=== PATIENT | female | born 1940 | race Caucasian/White ===

== ENCOUNTER → 2017-07-22 11:12 | Outpatient (POV) | payer MEDICARE, OTHER, SELFPAY | PROVIDERS: PCP Internal Medicine; Visit Provider Nurse Practitioner Acute Care | DX: Z00.00 Encounter for general adult medical examination without abnormal findings (principal) ==

== ENCOUNTER → 2017-08-01 07:45 | Outpatient (CLI) | payer MEDICARE, OTHER, SELFPAY ==
--- NOTE | 2017-08-01 07:47 | CI_ITS ---
Cerebrovascular Exam Indications: 433.10 Occlusion/stenosis of carotid artery without cerebral infarction. IMPRESSIONS 1. The bilateral vertebral arteries are patent with normal antegrade flow. 2. Study suggests 50-69% stenosis involving the right internal carotid artery. 3. Study suggests 50-69% stenosis involving the left internal carotid artery. Disease progression from the study of 28-Jun-2010. History: Risk factors: Current tobacco use. Hypertension. Carotid duplex study. Complete study and Doppler flow study including spectral analysis, color and mclaughlin scale imaging. Location: Vascular laboratory. Patient status: Outpatient. Tables: Arterial flow: + +--------+--------+ Location V sys V ed + +--------+--------+ Right CCA - proximal 73.9cm/s 16.5cm/s + +--------+--------+ Right CCA - distal 58.9cm/s 14.1cm/s + +--------+--------+ Right ECA 167cm/s -------- + +--------+--------+ Right ICA - proximal 171cm/s 41cm/s + +--------+--------+ Right ICA - mid 168cm/s 33.2cm/s + +--------+--------+ Right ICA - distal 116cm/s 21.8cm/s + +--------+--------+ Right vertebral 69cm/s -------- + +--------+--------+ Left CCA - proximal 86.4cm/s 15.7cm/s + +--------+--------+ Left CCA - distal 82.1cm/s 17.5cm/s + +--------+--------+ Left ECA 108cm/s -------- + +--------+--------+ Left ICA - proximal 203cm/s 47.1cm/s + +--------+--------+ Left ICA - mid 108cm/s 22.4cm/s + +--------+--------+ Left ICA - distal 72.3cm/s 20.4cm/s + +--------+--------+ Left vertebral 56cm/s -------- + +--------+--------+ Velocity ratios: + + + + + + Right, V sys Right, V ed Left, V sys Left, V ed + + + + + + Max ICA/dist CCA 2.9 2.91 2.47 2.69 + + + + + + (Report amended ) Electronically signed by: Jr España [id number]
== END ==
PROVIDERS: PCP Internal Medicine; Visit Provider Internal Medicine
DX: R09.89 Other specified symptoms and signs involving the circulatory and respiratory systems (principal); R42 Dizziness and giddiness; I25.10 Atherosclerotic heart disease of native coronary artery without angina pectoris; E78.5 Hyperlipidemia, unspecified; I10 Essential (primary) hypertension
CPT/HCPCS: 93880

== ENCOUNTER → 2017-12-30 08:15 | Outpatient (POV) | payer MEDICARE, OTHER, SELFPAY | PROVIDERS: Visit Provider Nurse Practitioner Acute Care | DX: Z00.00 Encounter for general adult medical examination without abnormal findings (principal) ==

== ENCOUNTER → 2018-07-16 10:33 | Outpatient (CLI) | payer MEDICARE, OTHER, SELFPAY ==
[2018-07-18 07:02] LABS: C difficile Toxins AB, EIA Negative (Negative)
[2018-07-23 06:15] LABS: Fats, Neutral Normal (.); Fats, Total Normal (.)
== END ==
PROVIDERS: Visit Provider Internal Medicine
DX: R19.7 Diarrhea, unspecified (principal)
CPT/HCPCS: 82705; 87045; 87177; 87205; 87324

== ENCOUNTER → 2018-10-15 09:45 | Outpatient (CLI) | payer MEDICARE, OTHER, SELFPAY ==
--- NOTE | 2018-10-15 09:48 | CA_ITS ---
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 Indications: CS FOLLOW-UP Risk Factors Hypertension: Doppler Spectral Velocity Analysis ECA (R) 188.00/ cm/s ECA (L) 169.00/ cm/s dICA (R) 123.00/38.60 cm/s dICA (L) 96.90/30.60 cm/s Gisela (R) 143.00/28.50 cm/s Gisela (L) 120.00/38.40 cm/s pICA (R) 217.00/46.00 cm/s pICA (L) 196.00/35.90 cm/s dCCA (R) 106.00/22.00 cm/s dCCA (L) 80.90/14.90 cm/s pCCA (R) 109.00/17.30 cm/s pCCA (L) 155.00/21.30 cm/s Vert (R) 65.20/ cm/s Vert (L) 41.60/ cm/s ICA/CCA 2.05 ICA/CCA 2.42 Findings Duplex evaluation demonstrates stenosis of the right Internal Carotid Artery and left Internal Carotid Artery in the range of 50-69%. Duplex evaluation demonstrates antegrade flow of the bilateral Vertebral Arteries. Electronically signed by : Jr España MD 10/16/2018 08:00:22
== END ==
PROVIDERS: PCP Internal Medicine; Visit Provider Internal Medicine
DX: I25.10 Atherosclerotic heart disease of native coronary artery without angina pectoris (principal); I65.23 Occlusion and stenosis of bilateral carotid arteries
CPT/HCPCS: 93880

== ENCOUNTER → 2018-12-24 12:14 | Outpatient (CLI) | payer MEDICARE, OTHER, SELFPAY ==
[2018-12-24 12:21] LABS: Adenovirus F 40/41, stool Not Detected (NotDetected); Astrovirus Not Detected (NotDetected); Campylobacter Not Detected (NotDetected); Cryptosporidium Not Detected (NotDetected); Cyclospora Cayetanesis Not Detected (NotDetected); Entamoeba histolytica Not Detected (NotDetected); Enteroaggregative E coli Not Detected (NotDetected); Enteropathogenic E coli Not Detected (NotDetected); Enterotoxigenic E coli Not Detected (NotDetected); Giardia lamblia Not Detected (NotDetected); Norovirus Not Detected (NotDetected); Plesimonas Shigalloides, PCR Not Detected (NotDetected); Rotavirus A Not Detected (NotDetected); Salmonella, PCR Not Detected (NotDetected); Sapovirus Not Detected (NotDetected); Shiga-like toxin E coli Not Detected (NotDetected); Shigella Enterovasive E coli Not Detected (NotDetected); Vibrio Cholerae Not Detected (NotDetected); Vibrio, PCR Not Detected (NotDetected); Yersinia Entercolitica, PCR Not Detected (NotDetected)
[2018-12-24 14:31] LABS: Clostridium Difficile A/B, PCR Detected (NotDetected)
== END ==
PROVIDERS: Visit Provider Internal Medicine
DX: R19.7 Diarrhea, unspecified (principal); A04.72 Enterocolitis due to Clostridium difficile, not specified as recurrent
CPT/HCPCS: 87506

== ENCOUNTER → 2018-12-29 08:33 | Outpatient (POV) | payer MEDICARE, OTHER, SELFPAY | PROVIDERS: PCP Internal Medicine; Visit Provider Nurse Practitioner Family | DX: Z00.00 Encounter for general adult medical examination without abnormal findings (principal) ==

== ENCOUNTER 2019-08-16 13:53 | Emergency (ER) | payer MEDICARE, OTHER, SELFPAY ==
[2019-08-16 13:55] VITALS: BP 131/61; PULSE 69; RESP 18; TEMP 36.7; O2SAT 96; BMI 27.4
--- NOTE | 2019-08-16 14:06 | PC.NURSE ---
PT DOESNT WANT ANYTHING FOR ME AT THIS TIME , ICE APPLIED TO RIGHT FA
--- NOTE | 2019-08-16 14:13 | XR_ITS ---
PROCEDURE: XR ELBOW LT MIN 3V CLINICAL INDICATION: injury Posttraumatic pain COMPARISON: No exams were available for comparison FINDINGS: No fracture or dislocation. No lytic or blastic change. There is normal mineralization. The joint spaces are well-preserved. No significant degenerative/arthritic changes. No erosive changes evident. Other findings:None. IMPRESSION: No acute findings. Dictated by: Jr España MD 08/16/2019 18:47 Electronically signed by Jr España MD in [place] 08/16/2019 18:47
--- NOTE | 2019-08-16 14:13 | XR_ITS ---
PROCEDURE: XR FOREARM LT 2V CLINICAL INDICATION: injury Injury with pain and deformity COMPARISON: XR WRIST LT 2V from 08/16/2019 XR WRIST LT MIN 3V from 08/16/2019 FINDINGS: There is a comminuted fracture involving the distal radius at the epiphyseal remnant region. The fracture slightly impacted with comminuted margins with dorsal displacement of the distal fracture fragment by 10 mm and dorsal angulation along with mild ulnar displacement of the distal fracture fragment by 10 mm. There is an intra-articular component suspected which may be confirmed with CT. There is minimal widening of the scapholunate joint. There is a vague transverse lucency at the mid scaphoid region on one view possibly artifactual. Follow-up may confirm. Osteoarthritic changes are present at the scapho trapezium joint. The proximal mid aspect of the forearm have an unremarkable appearance. IMPRESSION: Comminuted impacted and displaced distal radial fracture as described above with suspected intra-articular extension which may be confirmed with CT. Dictated by: Jr España MD 08/16/2019 18:51 Electronically signed by Jr España MD in [place] 08/16/2019 18:51
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
--- NOTE | 2019-08-16 14:26 | PC.NURSE ---
Pt refused any pain medication for her arm, ice pack and pillow for elevation given
--- NOTE | 2019-08-16 15:02 | PC.NURSE ---
Pt stated to nurse that she was tired of waiting and that her arm pain was worse, offered pt pain medication and she continued to refuse. Education pt that rad had another pt that was getting images and will be down shortly.
--- NOTE | 2019-08-16 15:08 | PC.NURSE ---
Pt to radiology
--- NOTE | 2019-08-16 16:35 | XR_ITS ---
PROCEDURE: XR WRIST LT 2V CLINICAL INDICATION: post reduction COMPARISON: XR WRIST LT MIN 3V from 08/16/2019 FINDINGS: The study is obtained through a cast. Comminuted distal radial fracture once again noted with mild dorsal and ulnar displacement of the distal fracture fragment which may be slightly improved from the pre reduction image. IMPRESSION: Status post closed reduction with no significant change in the comminuted distal radial fracture Dictated by: Jr España MD 08/16/2019 18:43 Electronically signed by Jr España MD in [place] 08/16/2019 18:43
--- NOTE | 2019-08-16 16:54 | PC.NURSE ---
xray doing a post reduction film , ortho glass applied , and sling applied
[2019-08-16 17:10] VITALS: BP 123/87; PULSE 65; RESP 20; TEMP 36.8; O2SAT 98
== END 2019-08-16 17:11 | disposition home or self-care (01) ==
PROVIDERS: Emergency Provider Emergency Medicine; PCP Internal Medicine
DX: S52.552A Other extraarticular fracture of lower end of left radius, initial encounter for closed fracture (principal); V86.55XA Driver of 3- or 4- wheeled all-terrain vehicle (ATV) injured in nontraffic accident, initial encounter; Y92.018 Other place in single-family (private) house as the place of occurrence of the external cause; I10 Essential (primary) hypertension; K21.9 Gastro-esophageal reflux disease without esophagitis; E78.5 Hyperlipidemia, unspecified; I25.10 Atherosclerotic heart disease of native coronary artery without angina pectoris; Z79.899 Other long term (current) drug therapy
CPT/HCPCS: 25605; 29125; 73080; 73090; 73100; 73110; 99284

== ENCOUNTER → 2019-08-17 12:12 | Outpatient (CLI) | payer MEDICARE, OTHER, SELFPAY ==
[2019-08-17 12:56] LABS: Basophils % 0.1 % (0.1-2.0); Hematocrit 38.6 % (37.0-47.0); Hemoglobin 12.9 g/dL (12.2-16.2); Lymphocytes # 2.1 K/mm3 (0.7-4.5); Lymphocytes % 11.2 % (10-50); Mean Corpuscular HGB Conc 33.4 g/dL (31.8-35.4); Mean Corpuscular Hemoglobin 31.5 pg (27.0-31.2); Mean Corpuscular Volume 94.3 fl (81-99); Monocytes # 1.4 K/mm3 (0.1-1.0); Monocytes % 7.4 % (1.7-9.3); Neutrophils # 15.1 K/mm3 (1.8-7.8); Neutrophils % 81.2 % (37.0-80.0); Platelet Count 203 K/mm3 (142-424); Red Cell Distribution Width 12.3 % (11.5-17.5); White Blood Count 18.6 K/mm3 (4.8-10.8)
[2019-08-17 13:12] LABS: MANUAL DIFFERENTIAL MANUAL DIFFERENTIAL (MANUAL DIFF)
[2019-08-17 14:20] LABS: Alanine Aminotransferase 17 U/L (12-78); Albumin Level 4.5 g/dl (3.5-5.0); Albumin/Globulin Ratio 1.7 (1.1-1.8); Alkaline Phosphatase 69 U/L (38-126); Anion Gap 13.2 mEq/L (5-15); Aspartate Amino Transferase 29 U/L (14-36); Bilirubin,Total 0.7 mg/dl (0.2-1.3); Blood Urea Nitrogen 23 mg/dl (7-17); Calcium 10.8 mg/dl (8.4-10.2); Carbon Dioxide 28 mmol/L (22.0-30.0); Chloride 99 mmol/L (98-107); Estimated Glomerular Filt Rate 69 ml/min (>60); GFR (African American) 84 ML/MIN (>60); Globulin 2.6 g/dL (1.3-3.2); Glucose 119 mg/dl (74-100); Potassium 4.2 mmoL/L (3.5-5.1); Sodium 136 mmol/L (136-145); Total Protein,Serum 7.1 g/dl (6.3-8.2)
[2019-08-17 14:23] LABS: Coronavirus 19 IgG Antibody Negative (Negative); Coronavirus 19 IgM Antibody Negative (Negative)
--- NOTE | 2019-08-17 14:49 | ECG_ITS ---
APPROVED REPORT Exam: Resting ECG HR:73 bpm ECG Measurements Heart Rate 73 AXES LA 240 P 57 QRSd 160 QRS 153 QT 462 T 13 QTc 508 <Conclusion> Sinus rhythm with 1st degree AV block Right bundle branch block Left posterior fascicular block Bifascicular block Abnormal ECG Electronically signed by : Zoran Petty, 08/19/2019 17:09:58
[2019-08-17 15:19] LABS: Lymphocytes % 8 % (10-50); Monocytes % 8 % (2-9); Neutrophils % 84 % (42-76); Platelet Estimate Normal; RBC Morphology Normal; Total Cells Counted 100
[2019-08-17 15:59] LABS: INR 1.01 (0.9-1.1); Prothrombin Time 10.4 seconds (9.4-11.8)
[2019-08-17 16:46] LABS: Activated Partial Thrombo Time 23.8 seconds (23.6-34.0)
== END ==
LOC: LAB 12:13 → RT 12:43
PROVIDERS: PCP Internal Medicine; Visit Provider Orthopaedic Surgery
DX: S52.92XA Unspecified fracture of left forearm, initial encounter for closed fracture (principal); H61.20 Impacted cerumen, unspecified ear; Z01.818 Encounter for other preprocedural examination; I65.23 Occlusion and stenosis of bilateral carotid arteries
CPT/HCPCS: 36415; 80053; 85007; 85025; 85610; 85730; 86328; 93005

== ENCOUNTER 2019-08-18 06:14 | Day surgery (SDC) | payer MEDICARE, OTHER, SELFPAY ==
[2019-08-17 12:40] VITALS: BMI 27.4
[2019-08-18] VITALS (11 sets, daily range): BP systolic 117–148; BP diastolic 47–70; PULSE 56–72; RESP 16–21; TEMP 36.4–36.6; O2SAT 92–100
--- NOTE | 2019-08-18 07:12 | HMH.ANESCL ---
[facility] Anesthesia Checklist - Patient Identification Patient Identification: Arm Band, Verbal (Name & ) - Structural Data Admitted From: Home Planned Operative Procedure/s: orif left wrist Consent for Planned Operative Procedure(s) Verified: Yes Verified Documents: History and Physical - NPO Status Verified Time NPO: 00:00 - Chart Verification Results Verified: CBC, BMP - Additional verifications Patient : No Anesthesia Reactions: No Hx Blood Transfusions: No Blood Transfusion Reaction: No Cephalosporin Allergy: No Previous Colonoscopy: Yes - Cardiovascular Assessment Heart Sounds: S1 & S2 Pulse Strength: Baseline Pulse Rhythm: Regular Peripheral Edema: No - Airway Assessment C-Spine Mobility Assessed: Yes TMJ Mobility Assessed: Yes Dentition: Good Dentition - Neurological Assessment Level of Consciousness: Awake, Alert, Appropriate Hx Seizures: No Numbness or tingling in extremities: No - Anesthesia Plan Anesthesia Risk discussed: Yes Anesthesia Plan: Verified ASA Class: III Anesthesia Type: General [facility] History I have reviewed the patient's past medical history: Yes Medical History: Reports:: Coronary Artery Disease, Gastroesophageal Reflux Disease(GERD), Hiatal Hernia, Hyperlipidemia, Hypertension Denies:: Diabetes Mellitus Type 1, Diabetes Mellitus Type 2, Internal Pacemaker, Seizures *Have you ever received a pneumonia vaccine?: Yes *Have you received a flu vaccine this season?: Yes Other Medical History: Reports: Arthritis. Denies: Blood Transfusion Reaction Anesthesia experience/problems:: none Other Surgeries: Yes: Appendectomy, CABG, Cardiac Catheterization, Cholecystectomy, Coronary Stent, Other. No: Pacemaker Amputation: No Fractures: Yes (Left wrist) - *Social History Smoking Status: Never smoker Alcohol Intake: never Alcohol Intake Frequency:: other Substance Use Type: denies use *Occupational Status:: retired Housing: house Household Members: spouse *Travel in the last 8 weeks: None Family Hx:: Coronary Artery Disease, Heart Attack
[2019-08-18 09:56] LABS: Microscopic,Cath URINE MICROSCOPIC (MICROSCOPIC)
[2019-08-18 09:58] LABS: Bilirubin,Cath Negative (Negative); Blood, Urine/Cath TRACE-I (Negative); Color,Urine/Cath YELLOW (Yellow); Glucose,Urine/Cath (UA) Negative (Negative); Ketones,Urine/Cath Negative (Negative); Leukocyte Esterase,Cath Negative (Negative); Nitrate,Cath POSITIVE (Negative); Protein,Urine/Cath Negative (Negative); Urobilinogen,Cath 0.2 EU/dl (0.2)
[2019-08-18 10:03] LABS: Appearance,Urine/Cath Slightly Cloudy (Clear)
[2019-08-18 10:12] LABS: Bacteria,Urine/Cath 2+ /lpf; Squamous Epithelial Ur./Cath Occasional #/hpf (0-5)
--- NOTE | 2019-08-18 10:16 | XR_ITS ---
PROCEDURE: XR WRIST LT 2V CLINICAL INDICATION: PINNING OF LEFT WRIST IN OR COMPARISON: No exams were available for comparison FINDINGS: Fluoro time: 2 minutes and 35 seconds. There has been interval insertion of a volar bone plate with multiple screws with good alignment of the comminuted distal radial fracture. IMPRESSION: Good alignment status post distal radial fracture Dictated by: Jr España MD 08/18/2019 15:27 Electronically signed by Jr España MD in [place] 08/18/2019 15:27
--- NOTE | 2019-08-18 11:04 | P.PN_ITS ---
[facility] Anesthesia Record Part I Intake, IV Amount: 1,550 Estimated blood loss (mL): 10 Urine output (mL): 150 Blood Products used (#): none Blood Pressure: 122/58 SaO2: 100 Pulse Rate: 65 Respiratory Rate: 18 Temperature: 97.6 F Patient is:: Drowsy, Nasal O2, Stable Stable to PACU at:: 10:56
--- NOTE | 2019-08-18 11:14 | XR_ITS ---
PROCEDURE: XR WRIST LT MIN 3V CLINICAL INDICATION: s/p ORIF left distal radius fracture COMPARISON: XR WRIST LT 2V from 08/16/2019 XR WRIST LT MIN 3V from 08/16/2019 FINDINGS: Studies obtained through a cast. There is a volar bone plate at the distal radius with good alignment of the comminuted distal radial fracture IMPRESSION: Good alignment status post ORIF distal radius Dictated by: Jr España MD 08/18/2019 11:37 Electronically signed by Jr España MD in [place] 08/18/2019 11:37
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
--- NOTE | 2019-08-19 08:32 | HMH.ANESII ---
[facility] Anesthesia Record Part II Discharge Time: 12:15 Destination: Surgical Day Care (OP Surgery) PACU nurse assessment reviewed?: Yes Patient Condition:: Good Anesthesia Complications:: None Swallowing reflex intact?: Yes Cyanosis?: No Blood Pressure: 148/66 Pulse Rate: 60 Temperature: 97.7 F Mental Status: Alert & Oriented Pain level:: 0 Nausea and/or vomitting:: None Intake, IV Amount: 0
[2019-08-19 08:33] VITALS: BP 148/66; PULSE 60; TEMP 36.5
== END 2019-08-18 12:28 | disposition home or self-care (01) ==
LOC: OR 06:16
PROVIDERS: PCP Internal Medicine; Visit Provider Orthopaedic Surgery
PROC: (CPT 25608; principal; 2019-08-18 07:30)
DX: S52.572A Other intraarticular fracture of lower end of left radius, initial encounter for closed fracture (principal); V86.55XA Driver of 3- or 4- wheeled all-terrain vehicle (ATV) injured in nontraffic accident, initial encounter; Y92.73 Farm field as the place of occurrence of the external cause; I10 Essential (primary) hypertension; I25.10 Atherosclerotic heart disease of native coronary artery without angina pectoris; Z95.5 Presence of coronary angioplasty implant and graft; Z79.899 Other long term (current) drug therapy
CPT/HCPCS: 25608; 73100; 73110; 76000; 81001; 87086; 87088; 87186; 96374; C1713; C1776; J2405

== ENCOUNTER → 2019-08-27 10:28 | Outpatient (CLI) | payer MEDICARE, OTHER, SELFPAY ==
--- NOTE | 2019-08-27 10:33 | XR_ITS ---
PROCEDURE: XR WRIST LT MIN 3V CLINICAL INDICATION: s/p distal radius fx fu COMPARISON: XR FOREARM LT 2V from 08/16/2019 XR WRIST LT MIN 3V from 08/16/2019 XR WRIST LT 2V from 08/16/2019 XR WRIST LT MIN 3V from 08/18/2019 FINDINGS: The extremity is not casted. There is a plate and screws traversing a reduced, comminuted distal radial fracture. Narrowing of the radial carpal row and mild narrowing of the 1st metacarpocarpal spaces is again noted. Soft tissues are edematous. IMPRESSION: As above Dictated by: Kel Brooks 08/27/2019 10:48 Electronically signed by Kel Brooks in [place] 08/27/2019 10:48
== END ==
PROVIDERS: PCP Internal Medicine; Visit Provider Orthopaedic Surgery
DX: S52.502A Unspecified fracture of the lower end of left radius, initial encounter for closed fracture (principal)
CPT/HCPCS: 73110

== ENCOUNTER → 2019-09-17 09:40 | Outpatient (CLI) | payer MEDICARE, OTHER, SELFPAY ==
--- NOTE | 2019-09-17 09:46 | XR_ITS ---
PROCEDURE: XR WRIST LT MIN 3V CLINICAL INDICATION: Lt wrist fx fu Follow-up fracture COMPARISON: XR WRIST LT MIN 3V from 08/16/2019 XR WRIST LT 2V from 08/16/2019 XR WRIST LT MIN 3V from 08/18/2019 XR WRIST LT MIN 3V from 08/27/2019 FINDINGS: Good alignment status post ORIF distal radial fracture with anterior bone plate in place overall not significantly changed. IMPRESSION: Good alignment status post ORIF distal radial fracture Dictated by: Jr España MD 09/17/2019 10:31 Electronically signed by Jr España MD in [place] 09/17/2019 10:31
== END ==
PROVIDERS: PCP Internal Medicine; Visit Provider Orthopaedic Surgery
DX: S52.502A Unspecified fracture of the lower end of left radius, initial encounter for closed fracture (principal)
CPT/HCPCS: 73110

== ENCOUNTER 2019-09-17 10:53 | Outpatient (RCR) | payer MEDICARE, OTHER, SELFPAY | END 2019-09-17 11:20 | disposition home or self-care (01) | LOC: OT 10:53 | PROVIDERS: Visit Provider Orthopaedic Surgery | DX: S52.572D Other intraarticular fracture of lower end of left radius, subsequent encounter for closed fracture with routine healing (principal); M18.12 Unilateral primary osteoarthritis of first carpometacarpal joint, left hand | CPT/HCPCS: 97763 ==

== ENCOUNTER → 2019-10-12 08:48 | Outpatient (CLI) | payer MEDICARE, OTHER, SELFPAY ==
--- NOTE | 2019-10-12 08:56 | XR_ITS ---
PROCEDURE: XR WRIST LT MIN 3V CLINICAL INDICATION: LT wrist FX Follow-up fracture COMPARISON: No exams were available for comparison FINDINGS: Volar bone plate is present as before with good alignment of the distal radial fracture. There is mild prominence of the scapholunate joint space nonspecific but could be related to ligamentous Injury. There are degenerative changes at the 1st metacarpal-carpal joint and scapho trapezium joint Other findings:None. IMPRESSION: Good alignment status post ORIF distal radial fracture. Please see above for detail Dictated b Jr España MD 10/12/2019 10:59 Jr España MD in [place] 10/12/2019 10:59
== END ==
PROVIDERS: PCP Internal Medicine; Visit Provider Orthopaedic Surgery
DX: S52.502A Unspecified fracture of the lower end of left radius, initial encounter for closed fracture (principal)
CPT/HCPCS: 73110

== ENCOUNTER → 2019-11-20 12:22 | Outpatient (CLI) | payer MEDICARE, OTHER, SELFPAY ==
--- NOTE | 2019-11-20 12:28 | XR_ITS ---
PROCEDURE: XR WRIST LT MIN 3V CLINICAL INDICATION: Lt wrist Follow-up fracture COMPARISON: CR XR WRIST LT MIN 3V from 08/18/2019 CR XR WRIST LT MIN 3V from 08/27/2019 DX XR WRIST LT MIN 3V from 09/17/2019 CR XR WRIST LT MIN 3V from 10/12/2019 FINDINGS: Volar bone plate remains in place stabilizing the distal radial fracture with good alignment of the fracture fragments. Other findings:None. IMPRESSION: No change status post ORIF good alignment distal radial fracture Dictated by: Jr España MD 11/20/2019 15:35 Jr España MD in [place] 11/20/2019 15:35
== END ==
PROVIDERS: PCP Internal Medicine; Visit Provider Orthopaedic Surgery
DX: S52.502A Unspecified fracture of the lower end of left radius, initial encounter for closed fracture (principal)
CPT/HCPCS: 73110

== ENCOUNTER → 2019-12-28 08:22 | Outpatient (POV) | payer MEDICARE, OTHER, SELFPAY | PROVIDERS: Visit Provider Nurse Practitioner Family | DX: Z00.00 Encounter for general adult medical examination without abnormal findings (principal) ==

== ENCOUNTER → 2020-01-01 08:44 | Outpatient (CLI) | payer MEDICARE, OTHER, SELFPAY ==
--- NOTE | 2020-01-01 08:49 | XR_ITS ---
PROCEDURE: XR WRIST LT MIN 3V CLINICAL INDICATION: Lt wrist F/U COMPARISON: CR XR WRIST LT MIN 3V from 10/12/2019 CR XR WRIST LT MIN 3V from 11/20/2019 FINDINGS: The volar metallic plate is again noted stabilizing the distal radial fracture which appears to be essentially healed. There is mild narrowing of the radiocarpal joint. The distal ulna is intact. The carpal bones appear grossly normal except for arthritic changes of 1st carpometacarpal joint. IMPRESSION: Stable ORIF distal radial fracture Dictated by: Dr. Jeanmarie Loomis MD 01/01/2020 09:24 Dr. Jeanmarie Loomis MD in [place] 01/01/2020 09:24
== END ==
PROVIDERS: PCP Internal Medicine; Visit Provider Orthopaedic Surgery
DX: S52.502A Unspecified fracture of the lower end of left radius, initial encounter for closed fracture (principal)
CPT/HCPCS: 73110

== ENCOUNTER → 2020-09-10 13:05 | Outpatient (CLI) | payer MEDICARE, OTHER, SELFPAY | PROVIDERS: Visit Provider Ophthalmology | DX: Z01.812 Encounter for preprocedural laboratory examination (principal); Z20.822 Contact with and (suspected) exposure to COVID-19 | CPT/HCPCS: U0003 ==

== ENCOUNTER 2020-09-13 10:24 | Day surgery (SDC) | payer MEDICARE, OTHER, SELFPAY ==
[2020-09-06 16:47] VITALS: BMI 24.7
[2020-09-13 10:43] VITALS: BP 136/51; PULSE 57; RESP 20; TEMP 36.6; O2SAT 98
[2020-09-13 11:25] VITALS: BP 137/64; PULSE 47; RESP 18; O2SAT 96
[2020-09-13 11:30] VITALS: BP 126/58; PULSE 45; RESP 18; O2SAT 100
[2020-09-13 11:35] VITALS: BP 125/57; PULSE 45; RESP 20; O2SAT 100
[2020-09-13 11:40] VITALS: BP 121/55; PULSE 46; RESP 20; O2SAT 100
[2020-09-13 11:45] VITALS: BP 115/58; PULSE 52; RESP 16; TEMP 36.4; O2SAT 96
== END 2020-09-13 11:56 | disposition home or self-care (01) ==
LOC: OR 10:26
PROVIDERS: PCP Internal Medicine; Visit Provider Ophthalmology
DX: H25.811 Combined forms of age-related cataract, right eye (principal)
CPT/HCPCS: 66984; V2632

== ENCOUNTER → 2020-09-26 10:02 | Outpatient (CLI) | payer MEDICARE, OTHER, SELFPAY | PROVIDERS: Visit Provider Ophthalmology | DX: Z01.812 Encounter for preprocedural laboratory examination (principal); Z11.52 Encounter for screening for COVID-19 | CPT/HCPCS: U0003 ==

== ENCOUNTER 2020-09-27 06:30 | Day surgery (SDC) | payer MEDICARE, OTHER, SELFPAY ==
[2020-09-20 13:03] VITALS: BMI 24.7
[2020-09-27 06:51] VITALS: BP 140/74; PULSE 74; RESP 18; TEMP 36.7; O2SAT 98
[2020-09-27 08:00] VITALS: BP 131/61; PULSE 50; RESP 18; O2SAT 97
[2020-09-27 08:05] VITALS: BP 130/60; PULSE 49; RESP 18; O2SAT 98
[2020-09-27 08:10] VITALS: BP 121/58; PULSE 47; RESP 18; O2SAT 100
[2020-09-27 08:15] VITALS: BP 118/53; PULSE 47; RESP 18; O2SAT 100
[2020-09-27 08:20] VITALS: BP 113/54; PULSE 52; RESP 18; TEMP 36.4; O2SAT 94
== END 2020-09-27 08:28 | disposition home or self-care (01) ==
LOC: OR 06:34
PROVIDERS: PCP Internal Medicine; Visit Provider Ophthalmology
DX: H25.813 Combined forms of age-related cataract, bilateral (principal); H35.3132 Nonexudative age-related macular degeneration, bilateral, intermediate dry stage; I25.10 Atherosclerotic heart disease of native coronary artery without angina pectoris; Z95.1 Presence of aortocoronary bypass graft; E78.5 Hyperlipidemia, unspecified; I11.9 Hypertensive heart disease without heart failure
CPT/HCPCS: 66984; V2632

== ENCOUNTER → 2021-01-11 16:08 | Outpatient (CLI) | payer MEDICARE, OTHER, SELFPAY ==
[2021-01-11 19:14] LABS: Chloride 104 mmol/L (98-107)
[2021-01-11 19:15] LABS: Potassium 4.6 mmoL/L (3.5-5.1); Sodium 141 mmol/L (136-145)
[2021-01-11 19:17] LABS: Alanine Aminotransferase 17 U/L (12-78); Alkaline Phosphatase 71 U/L (38-126); Aspartate Amino Transferase 26 U/L (14-36); Bilirubin,Total 0.4 mg/dl (0.2-1.3); Blood Urea Nitrogen 15 mg/dl (7-17); Estimated Glomerular Filt Rate 118 ml/min (>60); GFR (African American) 143 ML/MIN (>60)
[2021-01-11 19:18] LABS: Albumin Level 4.3 g/dl (3.5-5.0); Albumin/Globulin Ratio 1.8 (1.1-1.8); Anion Gap 11.6 mEq/L (5-15); Calcium 10.4 mg/dl (8.4-10.2); Carbon Dioxide 30 mmol/L (22.0-30.0); Chol/HDL Ratio 3.3 (1-3.5); Cholesterol 157 mg/dl (140-200); Globulin 2.4 g/dL (1.3-3.2); Glucose 67 mg/dl (74-100); HDL Cholesterol 47 mg/dl (40-60); Total Protein,Serum 6.7 g/dl (6.3-8.2); Triglycerides 173 mg/dl (30-150); VLDL Cholesterol 35 mg/dL (0-40)
[2021-01-11 19:29] LABS: Direct LDL Cholesterol 84.31 mg/dL (100-129)
== END ==
PROVIDERS: Visit Provider Internal Medicine
DX: I25.10 Atherosclerotic heart disease of native coronary artery without angina pectoris (principal); I10 Essential (primary) hypertension; E78.5 Hyperlipidemia, unspecified; I73.9 Peripheral vascular disease, unspecified; J44.9 Chronic obstructive pulmonary disease, unspecified; R73.01 Impaired fasting glucose
CPT/HCPCS: 80053; 80061

== ENCOUNTER → 2021-01-18 12:37 | Outpatient (CLI) | payer MEDICARE, OTHER, SELFPAY ==
--- NOTE | 2021-01-18 | CA_ITS ---
APPROVED REPORT Cloth Folder Machine: MITALI Laterality: Bilateral Study Quality: Good Indications: KIRK follow up Doppler Spectral Velocity Analysis ECA (R) 151.20/0.00 cm/s ECA (L) 130.20/7.70 cm/s dICA (R) 199.90/34.10 cm/s dICA (L) 116.60/28.20 cm/s Gisela (R) 206.90/43.50 cm/s Gisela (L) 130.70/19.20 cm/s pICA (R) 127.10/25.00 cm/s pICA (L) 216.50/41.00 cm/s dCCA (R) 95.80/14.20 cm/s dCCA (L) 63.60/13.50 cm/s pCCA (R) 92.80/8.20 cm/s pCCA (L) 72.20/12.50 cm/s Vert (R) 59.90/9.70 cm/s Vert (L) 99.20/17.30 cm/s ICA/CCA 2.25 ICA/CCA 3.00 Findings Duplex evaluation demonstrates antegrade flow of the bilateral Vertebral Arteries. Duplex evaluation demonstrates stenosis of the left proximal internal carotid artery in the range of 50-69% with PSV =140 cm/sec, EDV <100 cm/sec, and IC/CC Ratio <4.0. Duplex evaluation demonstrates stenosis of the right proximal internal carotid artery in the range of 50-69% with PSV =140 cm/sec, EDV <100 cm/sec, and IC/CC Ratio <4.0. Due to heavy acoustic shadowings, higher percent stenoses cannot be ruled out. Conclusion Duplex evaluation demonstrates antegrade flow of the bilateral Vertebral Arteries. Duplex evaluation demonstrates stenosis of the left proximal internal carotid artery in the range of 50-69% with PSV =140 cm/sec, EDV <100 cm/sec, and IC/CC Ratio <4.0. Duplex evaluation demonstrates stenosis of the right proximal internal carotid artery in the range of 50-69% with PSV =140 cm/sec, EDV <100 cm/sec, and IC/CC Ratio <4.0. Due to heavy acoustic shadowings, higher percent stenoses cannot be ruled out. 13 mm lt thyroid complex cyst Electronically signed by : Jr España MD 01/18/2021 19:32:16
== END ==
PROVIDERS: PCP Internal Medicine; Visit Provider Internal Medicine
DX: I65.23 Occlusion and stenosis of bilateral carotid arteries (principal)
CPT/HCPCS: 93880

== ENCOUNTER → 2021-05-12 13:08 | Outpatient (CLI) | payer MEDICARE, OTHER, SELFPAY ==
[2021-05-12 14:47] LABS: Basophils # 0.1 K/mm3 (0-0.2); Eosinophils # 0.2 K/mm3 (0.0-0.4); Eosinophils % 2.1 % (0.1-12.0); Hematocrit 41.8 % (37.0-47.0); Hemoglobin 13.2 g/dL (12.2-16.2); Lymphocytes # 3.4 K/mm3 (0.7-4.5); Lymphocytes % 35.3 % (10-50); Mean Corpuscular HGB Conc 31.6 g/dL (31.8-35.4); Mean Corpuscular Hemoglobin 30.2 pg (27.0-31.2); Mean Corpuscular Volume 95.4 fl (81-99); Mean Platelet Volume 10.4 fl (7.4-10.4); Monocytes # 0.8 K/mm3 (0.1-1.0); Monocytes % 8.2 % (1.7-9.3); Neutrophils # 5.1 K/mm3 (1.8-7.8); Neutrophils % 53.4 % (37.0-80.0); Platelet Count 278 K/mm3 (142-424); Red Blood Count 4.38 M/mm3 (4.20-5.40); Red Cell Distribution Width 12.6 % (11.5-17.5); White Blood Count 9.6 K/mm3 (4.8-10.8)
[2021-05-12 17:39] LABS: Alanine Aminotransferase 19 U/L (12-78); Albumin Level 4.4 g/dl (3.5-5.0); Albumin/Globulin Ratio 1.8 (1.1-1.8); Alkaline Phosphatase 56 U/L (38-126); Anion Gap 9.5 mEq/L (5-15); Aspartate Amino Transferase 27 U/L (14-36); Bilirubin,Total 0.7 mg/dl (0.2-1.3); Blood Urea Nitrogen 16 mg/dl (7-17); Calcium 10.1 mg/dl (8.4-10.2); Carbon Dioxide 29 mmol/L (22.0-30.0); Chloride 103 mmol/L (98-107); Chol/HDL Ratio 4.1 (1-3.5); Cholesterol 175 mg/dl (140-200); Estimated Glomerular Filt Rate 96 ml/min (>60); GFR (African American) 116 ML/MIN (>60); Globulin 2.5 g/dL (1.3-3.2); Glucose 76 mg/dl (74-100); HDL Cholesterol 43 mg/dl (40-60); Potassium 4.5 mmoL/L (3.5-5.1); Sodium 137 mmol/L (136-145); Total Protein,Serum 6.9 g/dl (6.3-8.2); Triglycerides 174 mg/dl (30-150); VLDL Cholesterol 35 mg/dL (0-40)
[2021-05-12 17:50] LABS: Direct LDL Cholesterol 87.71 mg/dL (100-129)
== END ==
PROVIDERS: Visit Provider Internal Medicine
DX: I25.10 Atherosclerotic heart disease of native coronary artery without angina pectoris (principal); I10 Essential (primary) hypertension; I73.9 Peripheral vascular disease, unspecified; E78.5 Hyperlipidemia, unspecified; R73.01 Impaired fasting glucose
CPT/HCPCS: 36415; 80053; 80061; 85025

== ENCOUNTER → 2021-05-16 09:25 | Outpatient (CLI) | payer MEDICARE, OTHER, SELFPAY ==
--- NOTE | 2021-05-16 09:35 | CT_ITS ---
FINAL REPORT TECHNIQUE: Thin section axial CT with IV contrast supplemented with multiplanar reconstruction under CT angiogram protocol. This study was performed with techniques to keep radiation doses as low as reasonably achievable (ALARA). Individualized dose reduction techniques using automated exposure control or adjustment of mA and/or kV according to the patient''s size were employed. NASCET criteria was utilized during interpretation. CLINICAL HISTORY: ABNORMAL CAROTID DUPLEX Bilateral 50-69% FINDINGS: Aortic arch: There is mild stenosis at the origin of the left subclavian artery, less than 50%. Right carotid: No significant stenosis is seen of the common carotid artery. There is heavily calcified plaque at the level of the right carotid bulb with approximately 50% diameter narrowing. The more distal right internal carotid artery is patent without stenosis. Left carotid: Mild calcified plaque is seen in the left common is carotid artery with no stenosis. There is heavily calcified plaque at the level of the left carotid bulb with 60-70% stenosis proximally. This is partially obscured by calcification. The more distal left internal carotid artery is patent without significant stenosis. Vertebral: The vertebrals are codominant. No significant stenosis is present. Incidental note is made of multiple small bilateral thyroid nodules. If indicated, follow-up thyroid ultrasound in 6 months. IMPRESSION: 50% stenosis of the right carotid artery. 60-70% stenosis of the left carotid artery. Incidental note is made of multiple small bilateral thyroid nodules. If indicated, follow-up thyroid ultrasound in 6 months. Reviewed, Interpreted and Dictated by Armando Portillo III, MD Transcribed by Marielena Arellano Authenticated by Armando Portillo III, MD on 05/16/2021 01:02:56 PM [facility]
== END ==
PROVIDERS: PCP Internal Medicine; Visit Provider Internal Medicine
DX: I65.23 Occlusion and stenosis of bilateral carotid arteries (principal)
CPT/HCPCS: 70498; Q9967

== ENCOUNTER → 2021-07-14 12:26 | Outpatient (CLI) | payer MEDICARE, OTHER, SELFPAY ==
[2021-07-14 13:23] LABS: Basophils # 0.1 K/mm3 (0-0.2); Basophils % 1.5 % (0.1-2.0); Eosinophils # 0.3 K/mm3 (0.0-0.4); Eosinophils % 2.9 % (0.1-12.0); Hematocrit 39.6 % (37.0-47.0); Hemoglobin 13.1 g/dL (12.2-16.2); Lymphocytes # 2.9 K/mm3 (0.7-4.5); Lymphocytes % 34.3 % (10-50); Mean Corpuscular HGB Conc 33.1 g/dL (31.8-35.4); Mean Corpuscular Hemoglobin 31.5 pg (27.0-31.2); Mean Corpuscular Volume 95.2 fl (81-99); Mean Platelet Volume 10.6 fl (7.4-10.4); Monocytes # 0.8 K/mm3 (0.1-1.0); Monocytes % 9.3 % (1.7-9.3); Neutrophils # 4.5 K/mm3 (1.8-7.8); Platelet Count 203 K/mm3 (142-424); Red Blood Count 4.16 M/mm3 (4.20-5.40); Red Cell Distribution Width 12.4 % (11.5-17.5); White Blood Count 8.6 K/mm3 (4.8-10.8)
[2021-07-14 14:08] LABS: Chloride 106 mmol/L (98-107); Potassium 4.4 mmoL/L (3.5-5.1); Sodium 137 mmol/L (136-145)
[2021-07-14 14:10] LABS: Alanine Aminotransferase 22 U/L (12-78); Aspartate Amino Transferase 29 U/L (14-36); Blood Urea Nitrogen 13 mg/dl (7-17); Estimated Glomerular Filt Rate 96 ml/min (>60); GFR (African American) 116 ML/MIN (>60)
[2021-07-14 14:11] LABS: Albumin Level 3.8 g/dl (3.5-5.0); Albumin/Globulin Ratio 1.7 (1.1-1.8); Alkaline Phosphatase 59 U/L (38-126); Anion Gap 7.4 mEq/L (5-15); Bilirubin,Total 0.7 mg/dl (0.2-1.3); Calcium 10.2 mg/dl (8.4-10.2); Carbon Dioxide 28 mmol/L (22.0-30.0); Chol/HDL Ratio 4.2 (1-3.5); Cholesterol 189 mg/dl (140-200); Globulin 2.3 g/dL (1.3-3.2); Glucose 88 mg/dl (74-100); HDL Cholesterol 45 mg/dl (40-60); Total Protein,Serum 6.1 g/dl (6.3-8.2); Triglycerides 173 mg/dl (30-150); VLDL Cholesterol 35 mg/dL (0-40)
[2021-07-14 14:22] LABS: Direct LDL Cholesterol 105.25 mg/dL (100-129)
== END ==
PROVIDERS: PCP Internal Medicine; Visit Provider Internal Medicine
DX: I25.10 Atherosclerotic heart disease of native coronary artery without angina pectoris (principal); I10 Essential (primary) hypertension; R73.01 Impaired fasting glucose; E78.5 Hyperlipidemia, unspecified
CPT/HCPCS: 80053; 80061; 85025

== ENCOUNTER → 2022-09-12 12:05 | Outpatient (CLI) | payer MEDICARE, OTHER, SELFPAY ==
[2022-09-12 13:24] LABS: Alanine Aminotransferase 22 U/L (12-78); Albumin Level 4.3 g/dl (3.5-5.0); Albumin/Globulin Ratio 1.8 (1.1-1.8); Alkaline Phosphatase 63 U/L (38-126); Anion Gap 9.6 mEq/L (5-15); Aspartate Amino Transferase 31 U/L (14-36); Bilirubin,Total 0.9 mg/dl (0.2-1.3); Blood Urea Nitrogen 9 mg/dl (7-17); Calcium 10.3 mg/dl (8.4-10.2); Carbon Dioxide 30 mmol/L (22.0-30.0); Chloride 106 mmol/L (98-107); Chol/HDL Ratio 2.5 (1-3.5); Cholesterol 156 mg/dl (140-200); Estimated Glomerular Filt Rate 96 ml/min (>60); GFR (African American) 116 ML/MIN (>60); Globulin 2.4 g/dL (1.3-3.2); Glucose 87 mg/dl (74-100); HDL Cholesterol 62 mg/dl (40-60); Potassium 4.6 mmoL/L (3.5-5.1); Sodium 141 mmol/L (136-145); Total Protein,Serum 6.7 g/dl (6.3-8.2); Triglycerides 145 mg/dl (30-150); VLDL Cholesterol 29 mg/dL (0-40)
[2022-09-12 13:35] LABS: Direct LDL Cholesterol 71.04 mg/dL (100-129)
== END ==
PROVIDERS: PCP Internal Medicine; Visit Provider Internal Medicine
DX: E78.5 Hyperlipidemia, unspecified (principal); I10 Essential (primary) hypertension; R73.01 Impaired fasting glucose
CPT/HCPCS: 80053; 80061

== ENCOUNTER → 2022-10-01 14:17 | Outpatient (CLI) | payer MEDICARE, OTHER, SELFPAY ==
[2022-10-01 18:41] LABS: Phosphorous 3.1 mg/dl (2.5-4.5)
[2022-10-01 18:42] LABS: Calcium 10.8 mg/dl (8.4-10.2)
[2022-10-05 20:28] LABS: Intact Parathyroid Hormone 34.5 pg/mL (7.5-53.5)
== END ==
PROVIDERS: PCP Internal Medicine; Visit Provider Internal Medicine
DX: E83.52 Hypercalcemia (principal)
CPT/HCPCS: 82310; 83970; 84100

== ENCOUNTER → 2022-10-04 13:44 | Outpatient (POV) | payer MEDICARE, OTHER, SELFPAY | PROVIDERS: Visit Provider Specialist/Technologist | DX: Z00.00 Encounter for general adult medical examination without abnormal findings (principal) ==

== ENCOUNTER 2023-07-08 07:44 | Day surgery (SDC) | payer MEDICARE, OTHER, SELFPAY ==
[2023-07-08] VITALS (11 sets, daily range): BP systolic 150–168; BP diastolic 56–75; PULSE 52–72; RESP 18; TEMP 36.6; O2SAT 95–98; BMI 22.8
--- NOTE | 2023-07-08 07:14 | IR_ITS ---
APPROVED REPORT Patient Location: Outpatient [facility]: CONRAD Donaldson RT (R) PROCEDURES Left heart catheterization Left ventriculogram Selective coronary angiogram Left internal mammary angiography Selective engagement of the saphenous vein graft circumflex artery Selective engagement of saphenous vein graft to the right coronary artery/posterior descending artery Drug-eluting stent deployment to the saphenous vein graft supplying the circumflex artery Drug-eluting stent deployment to the saphenous vein graft supplying the right coronary artery/posterior descending artery INDICATION Coronary artery disease, History of coronary bypass surgery, Accelerated angina pectoris Informed consent was obtained prior to the procedure. COMPLICATIONS NONE Estimated Blood Loss: LESS THAN 10 ML TECHNIQUE One percent lidocaine used to anesthetize the right groin. The right femoral artery was accessed via the Seldinger technique and a 5 Uzbek sheath was placed in the right femoral artery. A JL 4, JR4 catheter were used to perform left heart catheterization, left ventriculogram selective coronary angiography as well as selective engagement of the 2 vein grafts and the left internal mammary artery. At the end of the diagnostic angiogram therapeutic heparin was administered giving a therapeutic ACT and the 5 Uzbek sheath exchanged for a 6 Uzbek sheath. An LCB guide catheter was placed in the saphenous vein graft to the circumflex artery followed by Choice PT extra-support wire down the graft. A 3.5 x 26 mm Larry frontier stent was deployed at 16 yuri reducing the severe tandem stenoses to 0%. Following this a multipurpose catheter was placed in the saphenous vein graft to the right coronary artery where a 3.5 x 26 mm [place] frontier stent was deployed at 18 yuri reducing the severe stenosis to 0%. Excellent angiograph results were obtained with PARKER-3 flow being present down the graft before and after the procedure. At the end the procedure the apparatus was removed the groin was reprepped closure change sheath was removed hemostasis was achieved using TR banding patient was transferred to the postop putting in stable condition ANGIOGRAPHIC RESULTS The left main artery Proximally occluded The right coronary artery Proximally subtotally occluded The WRIGHT ventriculogram reveals Normal 60% The left ventricular end-diastolic pressure Less than 10 mmHg CONN graft LAD is large widely patent Saphenous vein graft to circumflex artery has a 50 and 80% mid vessel stenosis Saphenous vein graft to right coronary/posterior sending artery has proximal 60 to 70% eccentric stenosis IMPRESSION Atherosclerotic plaque in 2 of the vein grafts as described above Successful stenting of the saphenous vein graft to the right coronary severe disease reduced to 0% with 1 drug-eluting stent Successful stenting of the saphenous vein graft to the circumflex artery severe disease reduced to 0% with 1 drug-eluting stent Widely patent and large left internal mammary graft to the LAD Normal ejection fraction Normal left ventricular end-diastolic pressure PLAN 1. Dual antiplatelet therapy 2. LDL less than 55 to achieve that high intensity statin 3. Avoidance of tobacco products 4. Risk factor modification 5. Cardiac rehabilitation Electronically signed by : Andrés Aguiar MD 07/08/2023 10:41:21
[2023-07-08 08:26] LABS: Basophils # 0.1 K/mm3 (0-0.2); Basophils % 1.2 % (0.1-2.0); Eosinophils # 0.2 K/mm3 (0.0-0.4); Eosinophils % 1.8 % (0.1-12.0); Hematocrit 49.1 % (37.0-47.0); Hemoglobin 15.8 g/dL (12.2-16.2); Lymphocytes # 2.9 K/mm3 (0.7-4.5); Lymphocytes % 30.8 % (10-50); Mean Corpuscular HGB Conc 32.1 g/dL (31.8-35.4); Mean Corpuscular Hemoglobin 31.2 pg (27.0-31.2); Mean Corpuscular Volume 97.1 fl (81-99); Monocytes # 0.7 K/mm3 (0.1-1.0); Monocytes % 7.5 % (1.7-9.3); Neutrophils # 5.6 K/mm3 (1.8-7.8); Neutrophils % 58.7 % (37.0-80.0); Platelet Count 212 K/mm3 (142-424); Red Blood Count 5.06 M/mm3 (4.20-5.40); Red Cell Distribution Width 13.3 % (11.5-17.5); White Blood Count 9.5 K/mm3 (4.8-10.8)
[2023-07-08 08:57] LABS: Anion Gap 10.8 mEq/L (5-15); Blood Urea Nitrogen 15 mg/dl (7-17); Calcium 10.8 mg/dl (8.4-10.2); Carbon Dioxide 31 mmol/L (22.0-30.0); Chloride 101 mmol/L (98-107); Creatinine Clearance Estimated 39 mL/min (50-200); Estimated Glomerular Filt Rate 95 ml/min (>60); GFR (African American) 116 ML/MIN (>60); Glucose 91 mg/dl (74-100); Potassium 3.8 mmoL/L (3.5-5.1); Sodium 139 mmol/L (136-145)
[2023-07-08] MEDS: diphenhydrAMINE 50MG/ML VIAL 50 MG IV (09:22)
[2023-07-08] MEDS: 0.9 % SODIUM CHLORIDE 500 ML 25 ML IV (09:23)
[2023-07-08] MEDS: HEPARIN 1,000 UNITS/500ML NS (CATH LAB) 3000 UNIT IV (09:23)
[2023-07-08] MEDS: MIDAZOLAM HCL 1MG/1ML 5ML VIAL 1 MG IV (09:23)
[2023-07-08] MEDS: LIDOCAINE 1% 10ML MDV 20 ML IJ (09:23)
[2023-07-08] MEDS: FENTANYL 100MCG/2ML VIAL 50 MCG IV (09:23)
[2023-07-08] MEDS: HEPARIN 1,000 UNITS/ML 10ML VIAL (CATH LAB) 10000 UNIT IV (10:13)
[2023-07-08] MEDS: CLOPIDOGREL 300MG TABLET 600 MG PO (10:43)
[2023-07-08] MEDS: IOPAMIDOL-370 (76%);100ML BOTTLE 85 ML IV (10:55)
[2023-07-08 10:59] LABS: CATHL Activated Clotting Time 267 SEC (74-125)
== END 2023-07-08 13:30 | disposition home or self-care (01) ==
PROVIDERS: PCP Internal Medicine; Visit Provider Internal Medicine
DX: I25.118 Atherosclerotic heart disease of native coronary artery with other forms of angina pectoris (principal); Z95.1 Presence of aortocoronary bypass graft; Z79.899 Other long term (current) drug therapy; I10 Essential (primary) hypertension; E78.5 Hyperlipidemia, unspecified; I65.23 Occlusion and stenosis of bilateral carotid arteries; I45.2 Bifascicular block; Z95.5 Presence of coronary angioplasty implant and graft; Z79.01 Long term (current) use of anticoagulants
CPT/HCPCS: 80048; 85025; 85347; 92937; 92938; 93459; 99152; 99153; C1725; C1760; C1769; C1876; C1894; C9604; C9605; J1644; Q9967

== ENCOUNTER 2023-07-09 14:13 | Outpatient (CLI) | payer MEDICARE, OTHER, SELFPAY ==
--- NOTE | 2023-07-09 14:20 | CA_ITS ---
FINAL REPORT TECHNIQUE: Color Doppler, duplex Doppler and mclaughlin scale sonography of the bilateral neck vasculature was performed. Velocities were measured in the carotid arteries. Stenosis evaluation based on velocity criteria. CLINICAL HISTORY: KIRK,BRUIT COMPARISON: None FINDINGS: The peak systolic velocity of the right common carotid artery is 89 cm/sec and internal carotid artery 172 cm/sec. the diastolic velocity in the internal carotid artery is 26 cm/sec. Visually, a large amount of calcified plaque is present. These findings are consistent with less than 50% stenosis by viewing velocity measurements. The right ICA/CCA systolic ratio is 3.1. The external carotid artery is patent. The right vertebral artery is patent with antegrade flow. The peak systolic velocity of the left common carotid artery is 74 cm/sec and internal carotid artery 186 cm/sec. the diastolic velocity in the internal carotid artery is 40 cm/sec. Visually, a large amount of calcified plaque is present. These findings are consistent with 50 to 69% stenosis by viewing velocity measurements. The left ICA/CCA ratio is 3.4. The external carotid artery is patent. The left vertebral artery is patent with antegrade flow. IMPRESSION: By velocity measurements, there is less than 50% stenosis in the right carotid artery, with 50 to 69% stenosis in the left carotid artery. Bilateral patent vertebral arteries. Would suggest CTA or MRA could further evaluate. Reviewed, Interpreted and Dictated by Armando Portillo III, MD Transcribed by Natalie Leon Authenticated and . [facility]
== END 2023-07-09 23:59 | disposition home or self-care (01) ==
LOC: RT 14:14
PROVIDERS: PCP Internal Medicine; Visit Provider Physician Assistant
DX: R09.89 Other specified symptoms and signs involving the circulatory and respiratory systems (principal)
CPT/HCPCS: 93880

== ENCOUNTER 2023-07-11 11:02 | Outpatient (CLI) | payer MEDICARE, OTHER, SELFPAY ==
[2023-07-11 11:52] LABS: Basophils # 0.1 K/mm3 (0-0.2); Basophils % 0.8 % (0.1-2.0); Eosinophils # 0.2 K/mm3 (0.0-0.4); Eosinophils % 1.8 % (0.1-12.0); Hematocrit 46.9 % (37.0-47.0); Hemoglobin 15.1 g/dL (12.2-16.2); Lymphocytes # 3.1 K/mm3 (0.7-4.5); Lymphocytes % 32.6 % (10-50); Mean Corpuscular HGB Conc 32.2 g/dL (31.8-35.4); Mean Corpuscular Hemoglobin 31.5 pg (27.0-31.2); Mean Corpuscular Volume 97.8 fl (81-99); Mean Platelet Volume 9.1 fl (7.4-10.4); Monocytes # 0.9 K/mm3 (0.1-1.0); Monocytes % 9.2 % (1.7-9.3); Neutrophils # 5.3 K/mm3 (1.8-7.8); Neutrophils % 55.6 % (37.0-80.0); Platelet Count 193 K/mm3 (142-424); Red Blood Count 4.79 M/mm3 (4.20-5.40); Red Cell Distribution Width 13.1 % (11.5-17.5); White Blood Count 9.5 K/mm3 (4.8-10.8)
[2023-07-11 12:09] LABS: Chloride 105 mmol/L (98-107); Potassium 4.4 mmoL/L (3.5-5.1); Sodium 137 mmol/L (136-145)
[2023-07-11 12:12] LABS: Anion Gap 8.4 mEq/L (5-15); Blood Urea Nitrogen 15 mg/dl (7-17); Carbon Dioxide 28 mmol/L (22.0-30.0); Estimated Glomerular Filt Rate 80 ml/min (>60); GFR (African American) 97 ML/MIN (>60); Glucose 84 mg/dl (74-100)
== END 2023-07-11 23:59 | disposition home or self-care (01) ==
LOC: LAB 11:05
PROVIDERS: PCP Internal Medicine; Visit Provider Internal Medicine
DX: I25.10 Atherosclerotic heart disease of native coronary artery without angina pectoris (principal); Z95.5 Presence of coronary angioplasty implant and graft
CPT/HCPCS: 36415; 80048; 85025

== ENCOUNTER 2023-07-18 14:49 | Outpatient (CLI) | payer MEDICARE, OTHER, SELFPAY ==
--- NOTE | 2023-07-18 14:58 | XR_ITS ---
FINAL REPORT CLINICAL HISTORY: sob FINDINGS: TWO-VIEW CHEST The heart size is normal. Patient is status post median sternotomy. The lungs are clear. There is no pneumothorax. IMPRESSION: No acute cardiopulmonary process. Reviewed, Interpreted and Dictated by Armando Portillo III, MD Transcribed by Carmen Slaughter Authenticated and [facility]
== END 2023-07-18 23:59 | disposition home or self-care (01) ==
LOC: RAD 14:51
PROVIDERS: PCP Internal Medicine; Visit Provider Nurse Practitioner Family
DX: R06.09 Other forms of dyspnea (principal)
CPT/HCPCS: 71046

== ENCOUNTER 2023-11-13 11:30 | Outpatient (CLI) | payer MEDICARE, OTHER, SELFPAY ==
[2023-11-13 18:21] LABS: Alanine Aminotransferase 29 U/L (12-78); Albumin Level 4.2 g/dl (3.5-5.0); Albumin/Globulin Ratio 1.4 (1.1-1.8); Alkaline Phosphatase 58 U/L (38-126); Anion Gap 6.6 mEq/L (5-15); Aspartate Amino Transferase 37 U/L (14-36); Bilirubin,Total 0.8 mg/dl (0.2-1.3); Blood Urea Nitrogen 12 mg/dl (7-17); Calcium 10.6 mg/dl (8.4-10.2); Carbon Dioxide 30 mmol/L (22.0-30.0); Chloride 105 mmol/L (98-107); Chol/HDL Ratio 2.4 (1-3.5); Cholesterol 163 mg/dl (140-200); Estimated Glomerular Filt Rate 118 ml/min (>60); GFR (African American) 142 ML/MIN (>60); Globulin 2.9 g/dL (1.3-3.2); Glucose 72 mg/dl (74-100); HDL Cholesterol 68 mg/dl (40-60); Potassium 4.6 mmoL/L (3.5-5.1); Sodium 137 mmol/L (136-145); Total Protein,Serum 7.1 g/dl (6.3-8.2); Triglycerides 134 mg/dl (30-150); VLDL Cholesterol 27 mg/dL (0-40)
[2023-11-13 18:32] LABS: Direct LDL Cholesterol 70.23 mg/dL (100-129)
== END 2023-11-13 23:59 | disposition home or self-care (01) ==
LOC: LAB.DROPOF 11-14 09:44
PROVIDERS: PCP Internal Medicine; Visit Provider Internal Medicine
DX: E78.5 Hyperlipidemia, unspecified (principal); E78.2 Mixed hyperlipidemia; I11.9 Hypertensive heart disease without heart failure; I25.10 Atherosclerotic heart disease of native coronary artery without angina pectoris
CPT/HCPCS: 80053; 80061

== ENCOUNTER 2023-12-01 12:09 | Emergency (ER) | payer MEDICARE, OTHER, SELFPAY ==
[2023-12-01 12:20] VITALS: BP 145/73; PULSE 80; RESP 19; TEMP 36.8; O2SAT 95; BMI 22.7
--- NOTE | 2023-12-01 12:32 | ED_ITS ---
Discharge Plan Disposition Patient Disposition: Home, Self-Care Condition: Good Prescriptions Prescriptions: No Action potassium chloride 10 mEq capsule, extended release 10 meq PO BID Patient Comments: TAKE 1 CAPSULE BY MOUTH TWICE DAILY clopidogrel 75 mg tablet 75 mg PO DAILY Patient Comments: TAKE 1 TABLET BY MOUTH ONCE DAILY alprazolam 0.5 mg tablet 0.5 mg PO HS Patient Comments: TAKE 1 TABLET BY MOUTH EVERY DAY AT BEDTIME FOR ANXIETY gabapentin 300 mg capsule 300 mg PO DAILY Patient Comments: TAKE 1 CAPSULE BY MOUTH TWICE DAILY FOR PAIN lisinopril-hydrochlorothiazide 10-12.5 mg tablet 1 tab PO DAILY Patient Comments: TAKE 1 TABLET BY MOUTH ONCE DAILY rosuvastatin 20 mg tablet 20 mg PO DAILY Patient Comments: TAKE 1 TABLET BY MOUTH ONCE DAILY FOR CHOLESTEROL Referrals Follow up/Referrals: Leon Marx MD [Primary Care Provider] - See instructions Activity Restrictions/Add. Instructions Additional Instructions/Restrictions: Warm salt water rinses to clean the area You may try Maalox one the mouth sore, dab small amount on the sore several times daily or you can try a Maalox and Benadryl mixture:?you can mixture of equal parts Children's Liquid Benadryl and Maalox and dab small amount on visible sores every 6 hours do not swallow Do not wear your Dentures until the area is clear Follow up with Dentist if no improvement or any worsening of symptoms Over the counter Benzodent or Oragel may help with discomfort Clinical Impressions Clinical Impression: Denture sore mouth Instructions Patient Instructions: Canker Sores (Alternative Therapy), DI for Aphthous Ulcers (Canker Sores), DI for Dentures Print Language Print Language: Nigerien Discharge ED Provider: Tiny De La O [facility] [place] HPI General Stated complaint: abcess in mouth Mode of Arrival: Ambulatory Source of Information: Patient Limitations: No Limitations Time Seen by Provider: 12/01/23 12:32 Description of Symptoms (Recalled from Triage Doc. by RN): PATIENT C/O SORES IN MOUTH X 2 WEEKS HEENT Symptoms (Recalled from RN notes): Yes Resp Symptoms (Recalled from RN notes): No Skin Symptoms (Recalled from RN notes): No MS Symptoms (Recalled from RN notes): No Functional Status (Recalled from RN notes): WNL History of Present Illness Provider Complaint: Patient states that she wears a bottom denture and a week or so ago she was eating a cookie and it caused her denture to rub a sore area on the front of her lower gum, States that she has still been trying to wear her denture but the area is sore and hurts when she puts her denture in and has a little sore there Related Data Home Medications ?Medication ?Instructions ?Recorded ?Confirmed alprazolam 0.5 mg tablet 0.5 mg PO HS 12/01/23 12/01/23 clopidogrel 75 mg tablet 75 mg PO DAILY 12/01/23 12/01/23 gabapentin 300 mg capsule 300 mg PO DAILY 12/01/23 12/01/23 lisinopril 10 1 tab PO DAILY 12/01/23 12/01/23 mg-hydrochlorothiazide 12.5 mg tablet potassium chloride 10 mEq 10 meq PO BID 12/01/23 12/01/23 capsule,extended release rosuvastatin 20 mg tablet 20 mg PO DAILY 12/01/23 12/01/23 Allergies Allergy/AdvReac Type Severity Reaction Status Date / Time No Known Allergies Allergy Verified 11/28/23 13:06 Worker's Comp Is this a Worker's Comp case?: No [facility] Disclaimer: The information contained in this section may have been updated after the patient was seen, as this information can be updated by other users. Medical History Carotid bruit Carotid artery stenosis HLD (hyperlipidemia) HHD (hypertensive heart disease) CAD (coronary artery disease) Surgical History H/O four vessel coronary artery bypass graft Social History Smoking Status: Never smoker second hand exposure: No alcohol intake: never substance use type: denies use current occupational status: retired Travel in the last 8 weeks: None household members: spouse housing: house current occupational exposures/hazards: No caffeine: Yes ROS Obtained: Yes All systems reviewed & no additional complaints except as documented and Yes Systems reviewed as appropriate & no additional complaints except as documented Constitutional Constitutional: Reports system reviewed and no additional complaints, except as documented and Reports as per HPI ENT Ears, Nose, Mouth, and Throat: Reports system reviewed and no additional complaints, except as documented, Reports as per HPI and Reports other (small sore on the inside of lower gum from denture) Physical Exam General General appearance: alert and in no apparent distress Expanded ENT Exam Mouth exam: Present other (small canker sore noted on inside of bottom gumline no redness no swelling) Respiratory Respiratory exam: Present normal lung sounds bilaterally; Absent respiratory distress or wheezes Cardiovascular Cardiovascular exam: Present regular rate, normal rhythm and normal heart sounds Neurological Exam Neurological exam: Present alert, oriented X3 and normal gait Medical Decision Making Medical Records Screening: Per USPSTF and CDC recommendations, given the prevalence of disease in our region, it is our hospital?s policy to screen for HIV and viral Hepatitis for all patients aged 18 and over and those with ongoing risk factors. Jonathon Inquiry Pt receiving controlled substance: No Jonathon was queried for this patient: No Vital Signs: 12/01/23 12:20 Temperature 98.2 F Temperature Source Oral Pulse Rate [Left Brachial] 80 Respiratory Rate 19 Blood Pressure [Left Arm] 145/73 H Blood Pressure Mean [Left Arm] 97 Blood Pressure Source [Left Arm] Automatic Cuff Blood Pressure Position [Left Arm] Sitting 02 Sat by Pulse Oximetry 95 Oxygen Delivery Method Room Air
[2023-12-01 12:44] VITALS: BP 145/73; PULSE 80; RESP 19; TEMP 36.8; O2SAT 95
== END 2023-12-01 12:46 | disposition home or self-care (01) ==
PROVIDERS: Emergency Provider Nurse Practitioner; PCP Internal Medicine
DX: K12.1 Other forms of stomatitis (principal)
CPT/HCPCS: 99203; 99212; G0463

== ENCOUNTER 2023-12-16 14:28 | Outpatient (CLI) | payer MEDICARE, OTHER, SELFPAY ==
[2023-12-16 14:38] LABS: Chloride 104 mmol/L (98-107)
[2023-12-16 14:39] LABS: Potassium 3.9 mmoL/L (3.5-5.1); Sodium 136 mmol/L (136-145)
[2023-12-16 14:42] LABS: Anion Gap 5.9 mEq/L (5-15); Blood Urea Nitrogen 10 mg/dl (7-17); Calcium 10.5 mg/dl (8.4-10.2); Carbon Dioxide 30 mmol/L (22.0-30.0); Estimated Glomerular Filt Rate 95 ml/min (>60); GFR (African American) 115 ML/MIN (>60); Glucose 72 mg/dl (74-100)
[2023-12-16 14:54] LABS: Intact Parathyroid Hormone 62.8 pg/mL (7.5-53.5)
[2023-12-26 09:33] LABS: 1,25 Dihydroxy Vitamin D 30 pg/mL (.); 1,25-Dihydroxy, Vitamin D-2 <10 pg/mL (.); 1,25-Dihydroxy, Vitamin D-3 28 pg/mL (.)
== END 2023-12-16 23:59 | disposition home or self-care (01) ==
LOC: LAB.DROPOF 14:29
PROVIDERS: PCP Internal Medicine; Visit Provider Internal Medicine
DX: E83.52 Hypercalcemia (principal)
CPT/HCPCS: 80048; 82652; 83970

== ENCOUNTER 2024-02-01 09:06 | Observation (INO) | payer MEDICARE, OTHER, SELFPAY ==
[2024-02-01] VITALS (12 sets, daily range): BP systolic 119–147; BP diastolic 51–92; PULSE 63–99; RESP 16–24; TEMP 36.4–37.7; O2SAT 90–95; BMI 21.8; BMI 21.7; BMI 21.1
--- NOTE | 2024-02-01 09:23 | XR_ITS ---
PROCEDURE INFORMATION: Exam: XR Chest Exam date and time: 02/01/2024 9:21 AM Age: 83 years old Clinical indication: Cough and shortness of breath; Additional info: Cough/soa TECHNIQUE: Imaging protocol: Radiologic exam of the chest. Views: 2 views. COMPARISON: CR XR CHEST 2V 07/18/2023 3:01 PM FINDINGS: Lungs: Lungs are well aerated without a focal area of consolidation. Pleural spaces: Unremarkable. No pleural effusion. No pneumothorax. Heart/Mediastinum: Unremarkable. No cardiomegaly. Bones/joints: prior sternotomy. Soft tissues: Mild soft tissue fullness of the right hilum likely vasculature. IMPRESSION: Lungs are well aerated without a focal area of consolidation.
--- NOTE | 2024-02-01 09:23 | EXP.UTC ---
Discharge Plan Disposition Patient Disposition: Still a Patient Condition: Fair Prescriptions Prescriptions: No Action lisinopril-hydrochlorothiazide 10-12.5 mg tablet See Rx Instructions .ROUTE .COMPLEX Qty: 90 1RF Dose Instruction: Take 1 tablet by mouth once daily Rx Instructions: Take 1 tablet by mouth once daily alprazolam 0.5 mg tablet 0.5 mg PO HS Qty: 90 0RF potassium chloride 10 mEq capsule, extended release 10 meq PO BID Patient Comments: TAKE 1 CAPSULE BY MOUTH TWICE DAILY gabapentin 300 mg capsule 300 mg PO DAILY Patient Comments: TAKE 1 CAPSULE BY MOUTH TWICE DAILY FOR PAIN rosuvastatin 20 mg tablet 20 mg PO DAILY Patient Comments: TAKE 1 TABLET BY MOUTH ONCE DAILY FOR CHOLESTEROL metoprolol succinate 100 mg Tablet Extended Release 24 Hr 100 mg PO DAILY aspirin 81 mg Tablet 81 mg PO DAILY Referrals Follow up/Referrals: Leon Marx MD [Primary Care Provider] - See instructions Clinical Impressions Clinical Impression: Chest pain Print Language Print Language: Divehi Discharge ED Provider: Michelle Hall [facility] [place] HPI General Stated complaint: fever, cough, lower right abd pain Time Seen by Provider: 02/01/24 09:23 History of Present Illness Provider Complaint: She states that for the past approx 2 weeks she has has cough and chest congestion. She saw her pcp for this on 01/19 for this. She states she was given an antibiotic shot and prescribed oral antibiotics. She states she did not take the oral antibiotics as prescribed. Since then her congestion has got worse. She is now having right sided chest pain, shortness of breath and she states she feels very bad. She denies confusion, but she states there was a period this morning that she was sweating profusely and didn't really know where she was at for a second. Related Data Home Medications ?Medication ?Instructions ?Recorded ?Confirmed gabapentin 300 mg capsule 300 mg PO DAILY 12/01/23 02/01/24 potassium chloride 10 mEq 10 meq PO BID 12/01/23 02/01/24 capsule,extended release rosuvastatin 20 mg tablet 20 mg PO DAILY 12/01/23 02/01/24 aspirin 81 mg tablet 81 mg PO DAILY 02/01/24 02/01/24 metoprolol succinate 100 mg 100 mg PO DAILY 02/01/24 02/01/24 tablet,extended release 24 hr Previous Rx's ?Medication ?Instructions ?Recorded lisinopril 10 See Rx Instructions .Route 12/24/23 mg-hydrochlorothiazide 12.5 mg .COMPLEX #90 tabs tablet alprazolam 0.5 mg tablet 0.5 mg PO HS #90 tabs 12/31/23 Allergies Allergy/AdvReac Type Severity Reaction Status Date / Time No Known Allergies Allergy Verified 01/20/24 14:51 [facility] Disclaimer: The information contained in this section may have been updated after the patient was seen, as this information can be updated by other users. Medical History Carotid bruit Carotid artery stenosis HLD (hyperlipidemia) HHD (hypertensive heart disease) CAD (coronary artery disease) Surgical History H/O four vessel coronary artery bypass graft Social History Smoking Status: Never smoker second hand exposure: No alcohol intake: never substance use type: denies use current occupational status: retired household members: spouse housing: house current occupational exposures/hazards: No caffeine: Yes ROS Obtained: Yes All systems reviewed & no additional complaints except as documented Constitutional Constitutional: Reports chills and Reports fever(s) Eyes Eyes: Denies eye discharge ENT Ears, Nose, Mouth, and Throat: Reports as per HPI Cardiovascular Cardiovascular: Denies chest pain Respiratory Respiratory: Denies chest congestion and Reports cough Gastrointestinal Gastrointestingal: Reports nausea; Denies abdominal pain, constipation, cramping, diarrhea or vomiting Musculoskeletal Musculoskeletal: Denies arthralgias Integumentary/Breasts Skin/Breast: Denies rash Neurologic Neurologic: Denies paresthesias Physical Exam General General appearance: alert and in no apparent distress Head Head exam: atraumatic, normocephalic and normal inspection Eye Eye exam: Present normal appearance, PERRL and EOMI ENT ENT exam: Present normal exam, normal oropharynx, mucous membranes moist, TM's normal bilaterally and normal external ear exam Neck Neck exam: Present normal inspection, full ROM and trachea midline; Absent meningismus or lymphadenopathy Chest Chest inspection: Present normal inspection and symmetric chest wall rise; Absent tenderness Respiratory Respiratory exam: Present normal lung sounds bilaterally; Absent respiratory distress Cardiovascular Cardiovascular exam: Present regular rate and normal rhythm; Absent JVD Abdominal Exam Abdominal exam: Present soft and normal bowel sounds; Absent distention, tenderness or guarding Extremities Exam Extremities exam: Present normal inspection, full ROM and normal capillary refill; Absent calf tenderness Back Exam Back exam: Present normal inspection; Absent tenderness Neurological Exam Neurological exam: Present alert and oriented X3 Psychiatric Psychiatric exam: Present normal affect and normal mood Skin Skin exam: Present warm, dry, intact and normal color Lymphatic Lymphatic Findings: no adenopathy Medical Decision Making Medical Records Medical records reviewed: No I reviewed the patient's medical records. Screening: Per USPSTF and CDC recommendations, given the prevalence of disease in our region, it is our hospital?s policy to screen for HIV and viral Hepatitis for all patients aged 18 and over and those with ongoing risk factors. Jonathon Morales Pt receiving controlled substance: No Medical Decision Narrative: She was transferred to the er due to her chest pain and other symptoms.
--- NOTE | 2024-02-01 10:04 | ED_ITS ---
Discharge Plan Disposition Patient Disposition: Admitted Condition: Fair Prescriptions Prescriptions: No Action lisinopril-hydrochlorothiazide 10-12.5 mg tablet See Rx Instructions .ROUTE .COMPLEX Qty: 90 1RF Dose Instruction: Take 1 tablet by mouth once daily Rx Instructions: Take 1 tablet by mouth once daily alprazolam 0.5 mg tablet 0.5 mg PO HS Qty: 90 0RF potassium chloride 10 mEq capsule, extended release 10 meq PO BID Patient Comments: TAKE 1 CAPSULE BY MOUTH TWICE DAILY gabapentin 300 mg capsule 300 mg PO DAILY Patient Comments: TAKE 1 CAPSULE BY MOUTH TWICE DAILY FOR PAIN rosuvastatin 20 mg tablet 20 mg PO DAILY Patient Comments: TAKE 1 TABLET BY MOUTH ONCE DAILY FOR CHOLESTEROL metoprolol succinate 100 mg Tablet Extended Release 24 Hr 100 mg PO DAILY aspirin 81 mg Tablet 81 mg PO DAILY Referrals Follow up/Referrals: Leon Marx MD [Primary Care Provider] - See instructions Clinical Impressions Clinical Impression: Pneumonia, Ileus Print Language Print Language: Egyptian Discharge ED Provider: Michelle Hall General Adult HPI General Chief complaint: Shortness of Breath/Dyspnea Stated complaint: fever, cough, lower right abd pain Time Seen by Provider: 02/01/24 09:23 Mode of Arrival: Ambulatory Source of Information: Patient Description of Symptoms (Recalled from ER Triage Doc. by RN): COUGHING, SOB History of Present Illness HPI narrative: Patient is an 83-year-old with past medical history significant for coronary artery disease status post CABG hypertension hyperlipidemia presents to the emergency department for multiple complaints. Patient was diagnosed with a pneumonia 2 weeks ago was given 1 shot of Rocephin and then amoxicillin prescription without significant improvement. Patient says that she continues to have a nonproductive cough associated with chest pain worse whenever taking a deep breath. Pain is worse in her right side. No shortness of breath no worsening with exertion or lying flat no lower extremity edema. Patient also felt that she had a new fever this morning subjective and not measured. Has a history of a cholecystectomy but an appendectomy. Patient had sharp pain in her right lower side nonradiating that has been constant since this morning associated with 1 episode of nonbloody nonblack diarrhea. No dysuria but pain radiates from the right lower quadrant to the right flank. Related Data Home Medications ?Medication ?Instructions ?Recorded ?Confirmed gabapentin 300 mg capsule 300 mg PO DAILY 12/01/23 02/01/24 potassium chloride 10 mEq 10 meq PO BID 12/01/23 02/01/24 capsule,extended release rosuvastatin 20 mg tablet 20 mg PO DAILY 12/01/23 02/01/24 aspirin 81 mg tablet 81 mg PO DAILY 02/01/24 02/01/24 metoprolol succinate 100 mg 100 mg PO DAILY 02/01/24 02/01/24 tablet,extended release 24 hr Previous Rx's ?Medication ?Instructions ?Recorded lisinopril 10 See Rx Instructions .Route 12/24/23 mg-hydrochlorothiazide 12.5 mg .COMPLEX #90 tabs tablet alprazolam 0.5 mg tablet 0.5 mg PO HS #90 tabs 12/31/23 Allergies Allergy/AdvReac Type Severity Reaction Status Date / Time No Known Allergies Allergy Verified 01/20/24 14:51 [facility] Disclaimer: The information contained in this section may have been updated after the patient was seen, as this information can be updated by other users. Medical History Carotid bruit Carotid artery stenosis HLD (hyperlipidemia) HHD (hypertensive heart disease) CAD (coronary artery disease) Surgical History H/O four vessel coronary artery bypass graft Social History Smoking Status: Never smoker second hand exposure: No alcohol intake: never substance use type: denies use current occupational status: retired household members: spouse housing: house current occupational exposures/hazards: No caffeine: Yes Other Medical History Have you received the Flu Vaccine for this season: Yes Have you received the Pneumonia Vaccine: Yes ROS Obtained: Yes All systems reviewed & no additional complaints except as documented Physical Exam General General appearance: alert and in no apparent distress Head Head exam: atraumatic and normocephalic Eye Eye exam: Present PERRL ENT ENT exam: Present normal exam, normal oropharynx and mucous membranes moist Neck Neck exam: Present normal inspection Chest Chest inspection: Present normal inspection and symmetric chest wall rise; Absent tenderness Respiratory Respiratory exam: Present other (Decreased breath sounds bilaterally with end expiratory wheezing) Cardiovascular Cardiovascular exam: Present regular rate, normal rhythm and other (No lower extremity edema) Abdominal Exam Abdominal exam: Present soft, tenderness (Right lower quadrant with guarding and right flank tenderness) and guarding; Absent distention Neurological Exam Neurological exam: Present alert and oriented X3 Skin Skin exam: Present warm, dry and other (Normal capillary refill) Medical Decision Making Medical Records Screening: Per USPSTF and CDC recommendations, given the prevalence of disease in our region, it is our hospital?s policy to screen for HIV and viral Hepatitis for all patients aged 18 and over and those with ongoing risk factors. Jonathon Inquiry Pt receiving controlled substance: No Vital Signs: 02/01/24 09:23 02/01/24 09:31 02/01/24 10:08 Temperature 97.9 F 98.0 F Temperature Source Oral Oral Pulse Rate Pulse Rate [Right Brachial] 99 H 93 H Respiratory Rate 20 24 Blood Pressure Blood Pressure [Left Arm] 119/53 L 147/92 H Blood Pressure Mean Blood Pressure Mean [Left Arm] 75 110 02 Sat by Pulse Oximetry 94 L 95 95 Oxygen Delivery Method Room Air 02/01/24 10:30 02/01/24 11:00 Temperature Temperature Source Pulse Rate 89 89 Pulse Rate [Right Brachial] Respiratory Rate 18 20 Blood Pressure 134/61 127/62 Blood Pressure [Left Arm] Blood Pressure Mean 85 85 Blood Pressure Mean [Left Arm] 02 Sat by Pulse Oximetry 95 93 L Oxygen Delivery Method Lab Data Lab Results 02/01/24 09:57: WBC 30.7 H*, RBC 4.72, Hgb 15.2, Hct 44.3, MCV 93.9, MCH 32.2 H, MCHC 34.3, RDW 12.9, Plt Count 216, MPV 8.3, Neut % (Auto) 88.9 H, Lymph % (Auto) 4.0 L, [place] % (Auto) 6.3, Eos % (Auto) 0.3, Baso % (Auto) 0.5, Neut # (Auto) 27.3 H, Lymph # (Auto) 1.2, [place] # (Auto) 1.9 H, Eos # (Auto) 0.1, Baso # (Auto) 0.2, Total Counted 100, Neutrophils % (Manual) 87 H, Lymphocytes % (Manual) 7 L, Monocytes % (Manual) 6, Toxic Granulation 1+, Platelet Estimate Normal, RBC Morphology Normal, VBG pH 7.40, VBG pCO2 42.8, VBG pO2 32.6, VBG HCO3 26.1, VBG Total CO2 27.4 H, VBG O2 Saturation 68.6, VBG Base Excess 1.3, V BG Lactic Acid 2.1 H, Sodium 135 L, Potassium 3.8, Chloride 103, Carbon Dioxide 27, Anion Gap 8.8, BUN 18 H, Creatinine 0.70, Estimated Creat Clear 37, Estimated GFR 80, Est GFR ( Amer) 96, Glucose 126 H, Calcium 9.9, Magnesium 1.6, Total Bilirubin 1.6 H, AST 43 H, ALT 45, Alkaline Phosphatase 66, Troponin I < 0.01, NT-Pro-B Natriuret Pep 988 H, Total Protein 6.7, Albumin 4.1, Globulin 2.6, Albumin/Globulin Ratio 1.6, Procalcitonin 0.304 02/01/24 11:24: Urine Color Yellow, Urine Appearance Sl cloudy, Urine pH 8.0, Ur Specific [place] 1.020, Urine Protein 2+ A, Urine Glucose (UA) Negative, Urine Ketones Negative, Urine Blood Negative, Urine Nitrate Negative, Urine Bilirubin 1+ A, Urine Urobilinogen 1.0, Ur Leukocyte Esterase Trace, Urine RBC None, Urine WBC 3-5, Ur Squamous Epith Cells 3-5, Urine Bacteria 1+ 02/01/24 09:57 02/01/24 09:57 Orders (Tests/Meds): ED MEDICATIONS Generic Name Dose Route Start Last Admin Trade Name Freq PRN Reason Stop Dose Admin Piperacillin Sod/Tazobactam 100 mls @ 200 mls/hr 02/01/24 10:30 02/01/24 10:36 Sod 4.5 gm/ Sodium Chloride IV 02/11/24 10:29 200 mls/hr Q6H GUERITA Administration Vancomycin HCl 1,000 mg/ 250 mls @ 125 mls/hr 02/01/24 12:30 Sodium Chloride IV 02/01/24 14:29 ONCE ONE Discontinued Medications Generic Name Dose Route Start Last Admin Trade Name Freq PRN Reason Stop Dose Admin Iopamidol 80 ml 02/01/24 11:31 02/01/24 11:32 Iopamidol-370 (76%);100ml Bottle IV 02/01/24 11:32 80 ml ONCE ONE Administration Iopamidol 70 ml 02/01/24 11:35 02/01/24 11:36 Iopamidol-370 (76%);100ml Bottle IV 02/01/24 11:36 Not Given ONCE ONE Miscellaneous 1 each 02/01/24 12:30 Vancomycin Consult Request NOTAPPLIC 03/02/24 12:29 CONSULT PHARMACY GUERITA Sodium Chloride 10 ml 02/01/24 11:31 02/01/24 11:31 Sodium Chloride 0.9% 10ml Syr (Rad Only) IV 02/01/24 11:32 10 ml ONCE ONE Administration Sodium Chloride 50 ml 02/01/24 11:31 02/01/24 11:31 0.9 % Sodium Chloride 50 Ml Vial IV 02/01/24 11:32 50 ml ONCE ONE Administration Sodium Chloride 50 ml 02/01/24 11:35 02/01/24 11:36 0.9 % Sodium Chloride 50 Ml Vial IV 02/01/24 11:36 Not Given ONCE ONE Sodium Chloride 10 ml 02/01/24 11:35 02/01/24 11:36 Sodium Chloride 0.9% 10ml Syr (Rad Only) IV 03/02/24 11:34 10 ml NEEDED PRN Administration Maintain IV Site ORDERS Category Date Time Status CT abdomen pelvis w con Stat Cat Scan 02/01/24 10:[address] angio chest PE protocol Stat Cat Scan 02/01/24 10:16 Completed Chest XR 2 view (NOT portable) [XR chest 2V] Stat Exams 02/01/24 09:23 Completed BNP [NT Pro Brain Natriuretic Pep.] Stat Lab 02/01/24 09:57 Completed CBC w/Auto Diff [Complete Blood Count Auto Diff] Stat Lab 02/01/24 09:57 Completed CMP [Comprehensive Metabolic Panel] Stat Lab 02/01/24 09:57 Completed Full Resp Panel w/COVID ([facility]) Routine Lab 02/01/24 09:57 Received MAG [Magnesium] Stat Lab 02/01/24 09:57 Completed Procalcitonin Stat Lab 02/01/24 09:57 Completed Rapid PCR Covid and Flu A/B Stat Lab 02/01/24 09:57 Received Trop I [Troponin I] Stat Lab 02/01/24 09:57 Completed Troponin I Q3H Lab 02/01/24 13:30 Ordered Troponin I Q3H Lab 02/01/24 16:30 Ordered UA [Urinalysis and Microscopic] Stat Lab 02/01/24 11:24 Completed Blood Culture Stat Micro 02/01/24 10:02 Received Venous Blood Gas Routine RT 02/01/24 09:57 Completed Medical Decision Narrative: In summary, this 83-year-old female presents to the emergency department today with cough chest pain and right abdominal pain. On initial evaluation patient is hemodynamically stable saturating appropriately on room air afebrile no acute distress. Differential diagnosis includes but is not limited to diverticulitis diverticulosis pyelonephritis urinary tract infection ACS PE bronchitis pneumonia. Based on these concerns, I ordered CBC CMP magnesium troponin UA CT PE CT abdomen pelvis with IV contrast BNP EKG procalcitonin, NRP. ECG personally interpreted demonstrates no acute ST elevation ST depression concerning for ischemia sinus rhythm right axis deviation. Patient received [] for treatment. Labs personally reviewed demonstrate leukocytosis of 30 lactate of 2.1. Blood cultures drawn started on Zosyn and vancomycin for concern of sepsis based off of history and physical exam. XR personally interpreted demonstrates no focal opacity CT imaging personally interpreted demonstrate right Lou lobar and left upper lobe opacities, ileus. I had an interactive discussion with hospital medicine with recommendations to admit to their service. Of note, social determinants of health include inability to see healthcare provider in a timely manner. Critical Care Critical Care Time Critical Care Time: No
[2024-02-01 10:07] LABS: VBG Base Excess 1.3 mmol/L (-2.4-2.3); VBG HCO3 26.1 mmol/L (23-30); VBG Oxygen Saturation 68.6 % (50-70); VBG PCO2 42.8 mmol/L (35-51); VBG PO2 32.6 mmol/L (28-40); VBG Total CO2 27.4 mmol/L (23-27)
[2024-02-01 10:08] LABS: Lactate Venous 2.1 mmol/L (0.4-2.0)
--- NOTE | 2024-02-01 10:16 | CT_ITS ---
PROCEDURE INFORMATION: Exam: CTA Chest With Contrast Exam date and time: 02/01/2024 11:26 AM Age: 83 years old Clinical indication: Shortness of breath; Prior surgery; Surgery date: 6+ months; Surgery type: Stents; Additional info: SOA, right pleuritic chest pain TECHNIQUE: Imaging protocol: Computed tomographic angiography of the chest with contrast. Exam focused on the arteries. 3D rendering (Not supervised by radiologist): MIP and/or 3D reconstructed images were created by the technologist. Radiation optimization: All CT scans at this facility use at least one of these dose optimization techniques: automated exposure control; mA and/or kV adjustment per patient size (includes targeted exams where dose is matched to clinical indication); or iterative reconstruction. Contrast material: ISOVUE 370; Contrast volume: 80 ml; Contrast route: INTRAVENOUS (IV); COMPARISON: CR XR CHEST 2V 02/01/2024 9:21 AM FINDINGS: Pulmonary arteries: Normal. No pulmonary emboli. Aorta: Dense calcification of the transverse aorta and at the origin of the great vessels. Lungs: Airspace consolidation with air bronchograms within the middle lobe. Favor pneumonic process. Subtle patchy ground-glass airspace disease within the left upper lobe. Pleural spaces: Unremarkable. No pneumothorax. No pleural effusion. Heart: Unremarkable. No cardiomegaly. No pericardial effusion. Coronary arteries: Coronary stents Mediastinal space: Thoracic inlet is unremarkable. Lymph nodes: mediastinum is unremarkable other than a few small mediastinal lymph nodes. Bones/joints: Moderate degenerative changes within the visualized portions of the spine. prior sternotomy. Soft tissues: Unremarkable. Other findings: No dissection. No visualized embolism as characterized to the most proximal segmental level. Consider alternative form of imaging if indicated. IMPRESSION: 1. No dissection. No visualized embolism as characterized to the most proximal segmental level. Consider alternative form of imaging if indicated. 2. Airspace consolidation with air bronchograms within the middle lobe. Favor pneumonic process. Subtle patchy ground-glass airspace disease within the left upper lobe. 3. Dense calcification of the transverse aorta and at the origin of the great vessels.
--- NOTE | 2024-02-01 10:16 | CT_ITS ---
PROCEDURE INFORMATION: Exam: CT Abdomen And Pelvis With Contrast Exam date and time: 02/01/2024 11:26 AM Age: 83 years old Clinical indication: Abdominal pain; Flank; Right; Additional info: Rlq and right flank pain TECHNIQUE: Imaging protocol: Computed tomography of the abdomen and pelvis with contrast. 3D rendering (Not supervised by radiologist): MIP and/or 3D reconstructed images were created by the technologist. Radiation optimization: All CT scans at this facility use at least one of these dose optimization techniques: automated exposure control; mA and/or kV adjustment per patient size (includes targeted exams where dose is matched to clinical indication); or iterative reconstruction. Contrast material: ISOVUE; Contrast volume: 80 ml; Contrast route: IV; COMPARISON: CT ANGIO CHEST PE PROTOCOL 02/01/2024 11:26 AM FINDINGS: Tubes, catheters and devices: surgical plate and pedicle screws L3, L4 and L5. Interbody fusion L3-L4 and L4-L5. Liver: fatty infiltration of the liver. Gallbladder and biliary ducts: Surgical clips are present in the region of the gallbladder fossa. Pancreas: Normal. No ductal dilation. Spleen: Normal. No splenomegaly. Adrenal glands: Normal. No mass. Kidneys and ureters: Renal cyst on the left largest of approximately 15 mm. Stomach and bowel: Suggestion of mild thickening of the transverse colon likely related to lack of distension although a mild colitis is within the differential diagnosis. Diverticulosis without evidence of diverticulitis. Large bowel is nondilated. Air-filled cecum within the right pelvis. Periampullary diverticulum. Appendix: Appendix not clearly identified Intraperitoneal space: Unremarkable. No free air. No significant fluid collection. Vasculature: Dense vascular calcifications of the abdominal aorta and the iliac arteries. Significant narrowing within the left common iliac artery suspected. Dense calcification at the origin of the celiac trunk and superior mesenteric arteries. Hemodynamically significant narrowing in excess of 80%. Lymph nodes: Unremarkable. No enlarged lymph nodes. Urinary bladder: Unremarkable as visualized. Reproductive: Unremarkable as visualized. Bones/joints: See Tubes, catheters and devices finding. Soft tissues: Soft tissues are unremarkable. Other findings: Trace of fluid in the pelvis of unclear etiology. IMPRESSION: 1. Suggestion of mild thickening of the transverse colon likely related to lack of distension although a mild colitis is within the differential diagnosis. 2. Dense vascular calcifications of the abdominal aorta and the iliac arteries. Significant narrowing within the left common iliac artery suspected. 3. Fatty infiltration of the liver. Hepatomegaly. 4. Surgical plate and pedicle screws L3, L4 and L5. Interbody fusion L3-L4 and L4-L5. 5. Diverticulosis without evidence of diverticulitis. 6. Dense calcification at the origin of the celiac trunk and superior mesenteric arteries. Hemodynamically significant narrowing in excess of 80%. Flow however within the celiac trunk and superior mesenteric vessels. 7. Trace of fluid in the pelvis of unclear etiology. 8. Air and fluid-filled small bowel. Likely ileus. COMMENTS: Consistent with the [employer]'s Incidental Findings Committee white paper (J Am Shawna Radiol 2018): Any incidental renal lesion less than 1 cm or classified as too small to characterize, or any incidental cystic renal lesion characterized as simple-appearing, is likely benign. No follow-up imaging is recommended for these lesions per consensus recommendations based on imaging criteria.
[2024-02-01 10:22] LABS: Adenovirus,PCR Not Detected (NotDetected); Bordetella Pertussis Not Detected (NotDetected); Chlamydophila Pneumoniae, PCR Not Detected (NotDetected); Coronavirus 19, PCR Not Detected (NotDetected); Coronavirus 229E Not Detected (NotDetected); Coronavirus NL63 Not Detected (NotDetected); Coronavirus OC43 Not Detected (NotDetected); Coronovirus HKU1,PCR Not Detected (NotDetected); Human Metapneumovirus Not Detected (NotDetected); Influenza A, PCR Not Detected (NotDetected); Influenza AH1, 2009 Not Detected (NotDetected); Influenza AH1, PCR Not Detected (NotDetected); Influenza AH3,PCR Not Detected (NotDetected); Influenza B, PCR Not Detected (NotDetected); Mycoplasma Pneumoniae, PCR Not Detected (NotDetected); Parainfluenza 1, PCR Not Detected (NotDetected); Parainfluenza 2, PCR Not Detected (NotDetected); Parainfluenza 3, PCR Not Detected (NotDetected); Parainfluenza 4, PCR Not Detected (NotDetected); Respiratory Syncytial Virus Not Detected (NotDetected); Rhinovirus/Enterovirus Not Detected (NotDetected)
[2024-02-01 10:23] LABS: Basophils # 0.2 K/mm3 (0-0.2); Basophils % 0.5 % (0.1-2.0); Eosinophils # 0.1 K/mm3 (0.0-0.4); Eosinophils % 0.3 % (0.1-12.0); Hematocrit 44.3 % (37.0-47.0); Hemoglobin 15.2 g/dL (12.2-16.2); Lymphocytes # 1.2 K/mm3 (0.7-4.5); Mean Corpuscular HGB Conc 34.3 g/dL (31.8-35.4); Mean Corpuscular Hemoglobin 32.2 pg (27.0-31.2); Mean Corpuscular Volume 93.9 fl (81-99); Mean Platelet Volume 8.3 fl (7.4-10.4); Monocytes # 1.9 K/mm3 (0.1-1.0); Monocytes % 6.3 % (1.7-9.3); Neutrophils # 27.3 K/mm3 (1.8-7.8); Neutrophils % 88.9 % (37.0-80.0); Platelet Count 216 K/mm3 (142-424); Red Blood Count 4.72 M/mm3 (4.20-5.40); Red Cell Distribution Width 12.9 % (11.5-17.5); White Blood Count 30.7 K/mm3 (4.8-10.8)
[2024-02-01 10:26] LABS: MANUAL DIFFERENTIAL MANUAL DIFFERENTIAL (MANUAL DIFF)
[2024-02-01 10:29] LABS: Creatinine Clearance Estimated 37 mL/min (50-200)
[2024-02-01] MEDS: PIPERACILLIN/TAZO 4.5 GM in 0.9 % SODIUM CHLORIDE 100 ML IV ×2 (10:36→17:34)
[2024-02-01 10:41] LABS: Lymphocytes % 7 % (10-50); Monocytes % 6 % (2-9); Neutrophils % 87 % (42-76); Total Cells Counted 100
[2024-02-01 10:42] LABS: Platelet Estimate Normal; RBC Morphology Normal; Toxic Granulation 1+
[2024-02-01 10:43] LABS: Troponin I < 0.01 ng/ml (0.00-0.034)
[2024-02-01 10:47] LABS: Alanine Aminotransferase 45 U/L (12-78); Albumin Level 4.1 g/dl (3.5-5.0); Albumin/Globulin Ratio 1.6 (1.1-1.8); Alkaline Phosphatase 66 U/L (38-126); Anion Gap 8.8 mEq/L (5-15); Aspartate Amino Transferase 43 U/L (14-36); Bilirubin,Total 1.6 mg/dl (0.2-1.3); Blood Urea Nitrogen 18 mg/dl (7-17); Calcium 9.9 mg/dl (8.4-10.2); Carbon Dioxide 27 mmol/L (22.0-30.0); Chloride 103 mmol/L (98-107); Estimated Glomerular Filt Rate 80 ml/min (>60); GFR (African American) 96 ML/MIN (>60); Globulin 2.6 g/dL (1.3-3.2); Glucose 126 mg/dl (74-100); Magnesium 1.6 mg/dl (1.6-2.3); Potassium 3.8 mmoL/L (3.5-5.1); Sodium 135 mmol/L (136-145); Total Protein,Serum 6.7 g/dl (6.3-8.2)
--- NOTE | 2024-02-01 10:50 | PC.NURSE ---
Ghanshyam Purvis RN called lab to check status CMP, as radiology is waiting for kidney function test prior to CT being completed. Carlito in the lab states is will be 5 min. updated with this information
[2024-02-01 10:59] LABS: NT Pro Brain Natriuretic Pep. 988 pg/mL (0-450)
[2024-02-01 11:03] LABS: Procalcitonin 0.304 ng/mL (0.0-2.0)
[2024-02-01 11:26] LABS: Microscopic, Urine URINE MICROSCOPIC (MICROSCOPIC)
[2024-02-01 11:30] LABS: Appearance,Urine SL CLOUDY (Clear); Blood, Urine Negative (Negative); Color,Urine YELLOW (Yellow); Glucose,Urine (UA) Negative (Negative); Ketones,Urine Negative (Negative); Leukocyte Esterase,Urine TRACE (Negative); Nitrate,Urine Negative (Negative); Protein,Urine 2+ (Negative)
[2024-02-01] MEDS: 0.9 % SODIUM CHLORIDE 50 ML VIAL IV (11:31)
[2024-02-01] MEDS: SODIUM CHLORIDE 0.9% 10ML SYR (RAD ONLY) 10 ML IV ×2 (11:31→11:36)
[2024-02-01] MEDS: IOPAMIDOL-370 (76%);100ML BOTTLE 80 ML IV (11:32)
[2024-02-01 11:36] LABS: Bacteria,Urine 1+ /lpf; Bilirubin,Urine 1+ (Negative)
--- NOTE | 2024-02-01 12:36 | EXP.HP ---
History of Present Illness *Admission Date: 02/01/24 *Reason for visit:: Persistent cough, dyspnea *History of present illness: Ms. Whitman is an 83-year-old female with history significant for CABG 20 years ago, former smoker, hyperlipidemia, hypertension. She presented to the ER because of persistent cough over the past 3 weeks. Cough has been mildly productive for clear sputum. Has had subjective fevers. Denies any chest pain. Had some nausea and emesis this morning. Has not had any oxygen requirement. Saw her primary care 2 weeks ago and was given a shot of ceftriaxone and a course of amoxicillin. Symptoms never really got better. Presented to the ER due to worsening abdominal pain and persistent cough. Found to be stable on room air and the ER for white count elevated at 30,000. Temperature elevated at 99.8. Workup concerning for patchy consolidation bilaterally on CT of chest. Medicine consulted for admission and further management. Upon arrival on the floor, patient is stable on room air. Alert and oriented. Surrounded by family. States she is feeling little bit better, no further emesis. Wants to try and eat. Encouraged her to wait [facility] Disclaimer: The information contained in this section may have been updated after the patient was seen, as this information can be updated by other users. Medical History Skin cancer Carotid bruit Carotid artery stenosis HLD (hyperlipidemia) HHD (hypertensive heart disease) CAD (coronary artery disease) Surgical History Stented coronary artery H/O cardiac catheterization H/O four vessel coronary artery bypass graft Social History Smoking Status: Former smoker second hand exposure: No alcohol intake: never substance use type: denies use current occupational status: retired Travel in the last 8 weeks: None household members: spouse housing: house current occupational exposures/hazards: No caffeine: Yes Other Medical History Have you received the Flu Vaccine for this season: Yes Have you received the Pneumonia Vaccine: Yes Review of Systems Review of Systems Review of systems (narrative): 14 point review of systems performed, pertinent positives and negatives as per HPI *Neurologic Neurologic: Denies paresthesias Meds Home Medications and Allergies Home Medications ?Medication ?Instructions ?Recorded ?Confirmed ?Type gabapentin 300 mg capsule 300 mg PO BID 12/01/23 02/01/24 History potassium chloride 10 mEq 10 meq PO BID 12/01/23 02/01/24 History capsule,extended release rosuvastatin 20 mg tablet 20 mg PO DAILY 12/01/23 02/01/24 History alprazolam 0.5 mg tablet 0.5 mg PO HS #90 tabs 12/31/23 02/01/24 Rx aspirin 81 mg tablet 81 mg PO DAILY 02/01/24 02/01/24 History clopidogrel 75 mg tablet 75 mg PO DAILY 02/01/24 02/01/24 History lisinopril 10 1 tab PO DAILY 02/01/24 02/01/24 History mg-hydrochlorothiazide 12.5 mg tablet metoprolol succinate 100 mg 100 mg PO DAILY 02/01/24 02/01/24 History tablet,extended release 24 hr New Prescriptions to Start Prescriptions: Allergies Allergy/AdvReac Type Severity Reaction Status Date / Time No Known Allergies Allergy Verified 01/20/24 14:51 Exam Data for Last 24 hours Vital signs and Labs for Last 24 Hours: Temp Pulse Resp BP Pulse Ox O2 Del Method 98.0 F 88 18 126/61 92 L Room Air 02/01/24 10:08 02/01/24 12:30 02/01/24 12:30 02/01/24 12:30 02/01/24 12:30 02/01/24 10:08 Laboratory Results - last 24 hr 02/01/24 09:57: WBC 30.7 H*, RBC 4.72, Hgb 15.2, Hct 44.3, MCV 93.9, MCH 32.2 H, MCHC 34.3, RDW 12.9, Plt Count 216, MPV 8.3, Neut % (Auto) 88.9 H, Lymph % (Auto) 4.0 L, [place] % (Auto) 6.3, Eos % (Auto) 0.3, Baso % (Auto) 0.5, Neut # (Auto) 27.3 H, Lymph # (Auto) 1.2, [place] # (Auto) 1.9 H, Eos # (Auto) 0.1, Baso # (Auto) 0.2, Total Counted 100, Neutrophils % (Manual) 87 H, Lymphocytes % (Manual) 7 L, Monocytes % (Manual) 6, Toxic Granulation 1+, Platelet Estimate Normal, RBC Morphology Normal, VBG pH 7.40, VBG pCO2 42.8, VBG pO2 32.6, VBG HCO3 26.1, VBG Total CO2 27.4 H, VBG O2 Saturation 68.6, VBG Base Excess 1.3, VBG Lactic Acid 2.1 H, Sodium 135 L, Potassium 3.8, Chloride 103, Carbon Dioxide 27, Anion Gap 8.8, BUN 18 H, Creatinine 0.70, Estimated Creat Clear 37, Estimated GFR 80, Est GFR ( Amer) 96, Glucose 126 H, Calcium 9.9, Magnesium 1.6, Total Bilirubin 1.6 H, AST 43 H, ALT 45, Alkaline Phosphatase 66, Troponin I < 0.01, NT-Pro-B Natriuret Pep 988 H, Total Protein 6.7, Albumin 4.1, Globulin 2.6, Albumin/Globulin Ratio 1.6, Procalcitonin 0.304 02/01/24 11:24: Urine Color Yellow, Urine Appearance Sl cloudy, Urine pH 8.0, Ur Specific [place] 1.020, Urine Protein 2+ A, Urine Glucose (UA) Negative, Urine Ketones Negative, Urine Blood Negative, Urine Nitrate Negative, Urine Bilirubin 1+ A, Urine Urobilinogen 1.0, Ur Leukocyte Esterase Trace, Urine RBC None, Urine WBC 3-5, Ur Squamous Epith Cells 3-5, Urine Bacteria 1+ I & O for Last 24 hours: Intake & Output 01/29/24 01/30/24 01/31/24 02/01/24 23:59 23:59 23:59 23:59 Weight 55.792 kg Constitutional Constitutional: no acute distress, thin, chronically ill appearing and cooperative *Routine HEENT Exam Head: Present normocephalic Eye: Present EOMI and PERRL ENT: Present mucous membranes moist *Routine Neck Exam Neck: Present supple; Absent lymphadenopathy *Routine Respiratory Exam Respiratory: Present rhonchi and crackles; Absent respiratory distress or wheezes *Routine Cardiovascular Exam Cardiovascular: Present RRR *Routine Abdominal Exam Abdominal: Present soft and normoactive bowel sounds; Absent tenderness *Routine Rectal Exam Rectal:: deferred *Routine Genitalia Exam Genitalia:: deferred *Routine Extremities Exam Extremities: Absent cyanosis, clubbing or edema *Routine Skin Exam Skin: Present intact and warm; Absent rash *Routine Neurological Exam Neurological: Present alert, oriented X3 and moving all extremities; Absent altered mental status Assessment and Plan *Assessment and plan (1) Pneumonia: Status: Acute Qualifiers: Pneumonia type: due to unspecified organism Laterality: bilateral Lung location: unspecified part of lung Qualified Code(s): J18.9 - Pneumonia, unspecified organism Category: Medical Code(s): J18.9 - Pneumonia, unspecified organism (2) Ileus: Status: Acute Category: Medical Code(s): K56.7 - Ileus, unspecified (3) CAD (coronary artery disease): Status: Chronic Qualifiers: Coronary Disease-Associated Artery/Lesion type: [place] artery [place] vs. transplanted heart: [place] heart Associated angina: without angina Qualified Code(s): I25.10 - Atherosclerotic heart disease of [place] coronary artery without angina pectoris Category: Medical Code(s): I25.10 - Atherosclerotic heart disease of [place] coronary artery without angina pectoris (4) HHD (hypertensive heart disease): Status: Chronic Qualifiers: Heart failure presence: without heart failure Qualified Code(s): I11.9 - Hypertensive heart disease without heart failure Category: Medical Code(s): I11.9 - Hypertensive heart disease without heart failure (5) HLD (hyperlipidemia): Status: Chronic Qualifiers: Hyperlipidemia type: mixed hyperlipidemia Qualified Code(s): E78.2 - Mixed hyperlipidemia Category: Medical Code(s): E78.5 - Hyperlipidemia, unspecified (6) H/O four vessel coronary artery bypass graft: Status: Chronic Category: Surgical Code(s): Z95.1 - Presence of aortocoronary bypass graft Plan 88-year-old female who presents with cough, subjective fever, shortness of breath. Found to have pneumonia on chest imaging. White count elevated at 30,000. Discussed case with ER physician, request admission for further management given her vomiting, leukocytosis, pneumonia and failure of outpatient treatment. Agreed to admit for further treatment. Problems addressed as follows: Pneumonia Leukocytosis -PSI/port score of 84 points, class III risk. -White count 30,000, kidney function normal BUN 18, creatinine 0.7. Stable on room air. Goal sats greater 90%. Administer supplemental oxygen if needed -Repeat CBC, CMP, magnesium ordered for the morning -Initiated on Vanco and Zosyn in the ER, continue Zosyn 4.5 g every 8 hours and vancomycin 1 g every 24 hours. Monitor for toxicity -Per my review of CT, has right perihilar airspace disease along with left upper lobe area of consolidation. -Sputum culture pending, blood culture pending. - Former smoker, not on nebulizers or breathing treatments at home. Continue DuoNebs every 6 hours scheduled; Suspected component of COPD. Ileus: Seen on CT of chest abdomen pelvis. Has air-fluid levels. Given her vomiting, this may also account for the spike in white count. Monitor for improvement. Clear liquid diet today. Cautiously advance as tolerated. CAD Hypertensive heart disease Hyperlipidemia -History of CABG he was ago; PCI with stents placed earlier this year in July. Continue platelet therapy with aspirin 81 mg, Plavix 75 mg daily, lisinopril/HCTZ once daily, metoprolol succinate 100 mg daily, and Crestor 20 mg daily Anxiety: Continue alprazolam 0.5 mg night Neuropathy: Continue gabapentin 300 mg twice daily DNR Clear liquids Lovenox 40 mg subcu daily
--- NOTE | 2024-02-01 12:42 | EXP.PHA.CONS ---
Pharmacy Consult Date: 02/01/24 Time: 12:42 Referring provider: DR. SIMMONS Reason for Consult:: VANCOMYCIN DOSING Allergies Allergy/AdvReac Type Severity Reaction Status Date / Time No Known Allergies Allergy Verified 01/20/24 14:51 Home Medications ?Medication ?Instructions ?Recorded ?Confirmed ?Type gabapentin 300 mg capsule 300 mg PO DAILY 12/01/23 02/01/24 History potassium chloride 10 mEq 10 meq PO BID 12/01/23 02/01/24 History capsule,extended release rosuvastatin 20 mg tablet 20 mg PO DAILY 12/01/23 02/01/24 History lisinopril 10 See Rx Instructions .Route 12/24/23 02/01/24 Rx mg-hydrochlorothiazide 12.5 mg .COMPLEX #90 tabs tablet alprazolam 0.5 mg tablet 0.5 mg PO HS #90 tabs 12/31/23 02/01/24 Rx aspirin 81 mg tablet 81 mg PO DAILY 02/01/24 02/01/24 History metoprolol succinate 100 mg 100 mg PO DAILY 02/01/24 02/01/24 History tablet,extended release 24 hr New Prescriptions to Start Prescriptions: Height: 1.6 m Weight: 55.792 kg Laboratory Results:: Laboratory Results - last 24 hr 02/01/24 09:57: WBC 30.7 H*, RBC 4.72, Hgb 15.2, Hct 44.3, MCV 93.9, MCH 32.2 H, MCHC 34.3, RDW 12.9, Plt Count 216, MPV 8.3, Neut % (Auto) 88.9 H, Lymph % (Auto) 4.0 L, [place] % (Auto) 6.3, Eos % (Auto) 0.3, Baso % (Auto) 0.5, Neut # (Auto) 27.3 H, Lymph # (Auto) 1.2, [place] # (Auto) 1.9 H, Eos # (Auto) 0.1, Baso # (Auto) 0.2, Total Counted 100, Neutrophils % (Manual) 87 H, Lymphocytes % (Manual) 7 L, Monocytes % (Manual) 6, Toxic Granulation 1+, Platelet Estimate Normal, RBC Morphology Normal, VBG pH 7.40, VBG pCO2 42.8, VBG pO2 32.6, VBG HCO3 26.1, VBG Total CO2 27.4 H, VBG O2 Saturation 68.6, VBG Base Excess 1.3, VBG Lactic Acid 2.1 H, Sodium 135 L, Potassium 3.8, Chloride 103, Carbon Dioxide 27, Anion Gap 8.8, BUN 18 H, Creatinine 0.70, Estimated Creat Clear 37, Estimated GFR 80, Est GFR ( Amer) 96, Glucose 126 H, Calcium 9.9, Magnesium 1.6, Total Bilirubin 1.6 H, AST 43 H, ALT 45, Alkaline Phosphatase 66, Troponin I < 0.01, NT-Pro-B Natriuret Pep 988 H, Total Protein 6.7, Albumin 4.1, Globulin 2.6, Albumin/Globulin Ratio 1.6, Procalcitonin 0.304 02/01/24 11:24: Urine Color Yellow, Urine Appearance Sl cloudy, Urine pH 8.0, Ur Specific [place] 1.020, Urine Protein 2+ A, Urine Glucose (UA) Negative, Urine Ketones Negative, Urine Blood Negative, Urine Nitrate Negative, Urine Bilirubin 1+ A, Urine Urobilinogen 1.0, Ur Leukocyte Esterase Trace, Urine RBC None, Urine WBC 3-5, Ur Squamous Epith Cells 3-5, Urine Bacteria 1+ Medical History: Medical History (Updated 02/01/24 @ 12:24 by Michelle Hall MD) Carotid bruit Carotid artery stenosis HLD (hyperlipidemia) HHD (hypertensive heart disease) CAD (coronary artery disease) Assessment and Plan Assessment and plan all Dx Assessment and Plan for all problems:: Pharmacokinetic dosing service Objective: Patient: Floor: Age: 83 yo Serum creatinine: 0.70 mg/dL Height: 63.0 Inches Weight (kg): 55.8 Assessment: IBW (kg): 52.40 Dosing wt(kg): 55.8 Estimated Creatinine clearance (ml/min): 49.5 CRCL method: Cockcroft and Gault using ibw(default). Drug selected: Vancomycin Loading dose (mg): Vd (liters): 41.8 (factor used: 0.75 L/kg) Ross (hr-1): 0.045 Half life (hrs): 15.40 CLvanco=?? 1.881 L/hr Recommended dose: 1000 mg Interval: 24 hrs Infusion time (hrs): 2.0 Predicted peak (mcg/mL): 34.6 Predicted trough (mcg/mL): 12.86 Total body weight is being used for vancomycin dosing. Recommendations: Give Vancomycin 1000 mg q 24 hrs with an expected Cpeak of 34.6 mcg/ml and an expected Ctrough of 12.86 mcg/ml AUC 0-24 /CHIDI Data: CHIDI 0.5 mcg/mL:?? AUC/CHIDI:? 1063.3 CHIDI 1.0 mcg/mL:?? AUC/CHIDI:? 531.6 --------- CHIDI 1.5 mcg/mL:?? AUC/CHIDI:? 354.4 CHIDI 2.0 mcg/mL:?? AUC/CHIDI:? 265.8 Thank you for the consult, will continue to follow. -ARGENTINA CASTRO, JUDYD
--- NOTE | 2024-02-01 12:45 | PC.NURSE ---
spoke with smokehouse operator for bed request
--- NOTE | 2024-02-01 13:00 | HMH.PHAINT1 ---
Pharmacy Intervention Comments: MEDICATION RECONCILIATION COMPLETED ON PATIENT USING EXTERNAL FILL HISTORY FROM PHARMACY. -ARGENTINA CASTRO, JUDYD
--- NOTE | 2024-02-01 13:20 | PC.NURSE ---
arrived by w/c from ED
[2024-02-01 14:05] LABS: Reflex Lactic Add Lactic Reflex
[2024-02-01 14:17] LABS: Troponin I < 0.01 ng/ml (0.00-0.034)
[2024-02-01] MEDS: VANCOMYCIN HCL 1,000 MG in 0.9 % SODIUM CHLORIDE 250 ML 125 MG IV (14:34)
[2024-02-01 14:54] LABS: Lactic Acid Follow Up (RFLX 1) 1.1 mmol/L (0.7-2.1)
--- NOTE | 2024-02-01 16:42 | PC.NURSE ---
patient is alert and oriented x4. remains on room air and tolerating well. no c/o pain, nausea, or emesis since arriving to the floor. has tolerated a clear liquid diet well. patient goes to the bathroom independently. no further requests at this time, call light within reach, family at bedside.
[2024-02-01 16:59] LABS: Troponin I < 0.01 ng/ml (0.00-0.034)
--- NOTE | 2024-02-01 18:05 | PC.NURSE ---
IV in the right AC became dislodged, IV removed and a new IV placed in the left AC.
[2024-02-01] MEDS: IPRATROPIUM/ALBUTEROL 3 ML NEB IH ×2 (18:19→23:53)
[2024-02-01] MEDS: GABAPENTIN 300MG CAPSULE 300 MG PO (20:51)
[2024-02-01] MEDS: ATORVASTATIN 40MG TABLET 40 MG PO (20:51)
[2024-02-01] MEDS: ALPRAZolam 0.5MG TABLET 0.5 MG PO (20:51)
[2024-02-02] VITALS: BP 116/47; PULSE 66; RESP 16; TEMP 36.6; O2SAT 93
[2024-02-02 00:15] VITALS: PULSE 66
[2024-02-02] MEDS: PIPERACILLIN/TAZO 4.5 GM in 0.9 % SODIUM CHLORIDE 100 ML IV ×2 (02:53→10:18)
[2024-02-02 04:00] VITALS: BP 139/68; PULSE 59; RESP 16; TEMP 36.5; O2SAT 95; BMI 21.6
[2024-02-02] MEDS: IPRATROPIUM/ALBUTEROL 3 ML NEB IH (06:29)
[2024-02-02 06:30] VITALS: PULSE 74; PULSE 75; O2SAT 90
--- NOTE | 2024-02-02 06:37 | PC.NURSE ---
no acute changes
[2024-02-02 06:55] LABS: Basophils % 0.2 % (0.1-2.0); Eosinophils % 0.1 % (0.1-12.0); Red Cell Distribution Width 12.7 % (11.5-17.5)
[2024-02-02 06:58] LABS: Chloride 107 mmol/L (98-107)
[2024-02-02 06:59] LABS: Albumin Level 3.3 g/dl (3.5-5.0); Potassium 3.3 mmoL/L (3.5-5.1); Sodium 136 mmol/L (136-145)
[2024-02-02 07:01] LABS: Alanine Aminotransferase 31 U/L (12-78); Anion Gap 5.3 mEq/L (5-15); Aspartate Amino Transferase 29 U/L (14-36); Blood Urea Nitrogen 16 mg/dl (7-17); Carbon Dioxide 27 mmol/L (22.0-30.0); Creatinine Clearance Estimated 37 mL/min (50-200); Estimated Glomerular Filt Rate 95 ml/min (>60); GFR (African American) 115 ML/MIN (>60)
[2024-02-02 07:02] LABS: Albumin/Globulin Ratio 1.3 (1.1-1.8); Alkaline Phosphatase 57 U/L (38-126); Bilirubin,Total 1.9 mg/dl (0.2-1.3); Calcium 9.3 mg/dl (8.4-10.2); Globulin 2.6 g/dL (1.3-3.2); Glucose 93 mg/dl (74-100); Total Protein,Serum 5.9 g/dl (6.3-8.2)
[2024-02-02 07:03] LABS: Hematocrit 39.9 % (37.0-47.0); Lymphocytes % 8.4 % (10-50); Mean Corpuscular HGB Conc 33.2 g/dL (31.8-35.4); Mean Corpuscular Hemoglobin 31.1 pg (27.0-31.2); Mean Corpuscular Volume 93.6 fl (81-99); Mean Platelet Volume 8.5 fl (7.4-10.4); Monocytes # 1.3 K/mm3 (0.1-1.0); Monocytes % 5.5 % (1.7-9.3); Neutrophils # 20.1 K/mm3 (1.8-7.8); Neutrophils % 85.9 % (37.0-80.0); Platelet Count 176 K/mm3 (142-424); Red Blood Count 4.26 M/mm3 (4.20-5.40); White Blood Count 23.4 K/mm3 (4.8-10.8)
[2024-02-02 07:04] LABS: Hemoglobin 13.2 g/dL (12.2-16.2)
[2024-02-02 07:05] LABS: MANUAL DIFFERENTIAL MANUAL DIFFERENTIAL (MANUAL DIFF)
[2024-02-02 08:00] VITALS: BP 123/52; PULSE 60; RESP 18; TEMP 36.8; O2SAT 95
[2024-02-02 08:18] LABS: Lymphocytes % 8 % (10-50); Monocytes % 7 % (2-9); Neutrophils % 85 % (42-76); Total Cells Counted 100
[2024-02-02 08:19] LABS: Platelet Estimate Normal; RBC Morphology Normal
[2024-02-02] MEDS: GABAPENTIN 300MG CAPSULE 300 MG PO (09:07)
[2024-02-02] MEDS: ASPIRIN EC 81MG TABLET 81 MG PO (09:07)
[2024-02-02] MEDS: METOPROLOL SUCCINATE XL 100MG TABLET 100 MG PO (09:08)
[2024-02-02] MEDS: LISINOPRIL/HCTZ 10-12.5MG TABLET 1 EACH PO (09:08)
[2024-02-02] MEDS: CLOPIDOGREL 75MG TAB 75 MG PO (09:08)
[2024-02-02] MEDS: ENOXAPARIN 40MG/0.4ML SYRINGE 40 MG SUBCUT (09:08)
--- NOTE | 2024-02-02 10:28 | P.DS_ITS ---
General Admission date:: 02/01/24 Discharge date: 02/02/24 HPI HPI HPI: Ms. Whitman is an 83-year-old female with history significant for CABG 20 years ago, former smoker, hyperlipidemia, hypertension. She presented to the ER because of persistent cough over the past 3 weeks. Cough has been mildly productive for clear sputum. Has had subjective fevers. Denies any chest pain. Had some nausea and emesis this morning. Has not had any oxygen requirement. Saw her primary care 2 weeks ago and was given a shot of ceftriaxone and a course of amoxicillin. Symptoms never really got better. Presented to the ER due to worsening abdominal pain and persistent cough. Found to be stable on room air and the ER for white count elevated at 30,000. Temperature elevated at 99.8. Workup concerning for patchy consolidation bilaterally on CT of chest. Medicine consulted for admission and further management. Upon arrival on the floor, patient is stable on room air. Alert and oriented. Surrounded by family. States she is feeling little bit better, no further emesis. Wants to try and eat. Encouraged her to wait Hospital Course Hospital Course Hospital Course: 88-year-old female who presents with cough, subjective fever, shortness of breath. Found to have pneumonia on chest imaging. White count elevated at 30,000. Discussed case with ER physician, request admission for further management given her vomiting, leukocytosis, pneumonia and failure of outpatient treatment. Agreed to admit for further treatment. Patient remained on room air during admission. Tolerated p.o. intake. Tolerated antibiotics well. Given her clinical improvement and trending down white count, stable to discharge home with further management as an outpatient. Problems addressed as follows: Pneumonia Leukocytosis -PSI/port score of 84 points, class III risk. White count 30,000, kidney function normal BUN 18, creatinine 0.7. Stable on room air. Patient was initiated on vancomycin and Zosyn in the ER. Chest CT reviewed showing small area of airspace disease left upper lobe and right perihilar region. Remained stable throughout admission on room air with no significant distress or productive cough. White cell count improved to 23,000 on morning of discharge. Patient remained afebrile. Blood and sputum cultures were obtained however, nothing growing by discharge. Given stability on exam, patient transition to Levaquin to complete antibiotic course. Of note, right perihilar density has an abnormal appearance that would benefit from repeat imaging in 3 to 6 months to monitor for resolution or change. Will defer to PCP for continued monitoring. Stable to discharge home. Ileus: Seen on CT of chest abdomen pelvis. Has air-fluid levels. Initially vomited when she came into the ER. Patient did well with bowel movements and tolerating p.o. intake. Having no abdominal pain. Advance to regular diet at discharge. CAD Hypertensive heart disease Hyperlipidemia -History of CABG he was ago; PCI with stents placed earlier this year in July. Continue dual anti-platelet therapy with aspirin 81 mg, Plavix 75 mg daily, lisinopril/HCTZ once daily, metoprolol succinate 100 mg daily, and Crestor 20 mg daily Anxiety: Continue alprazolam 0.5 mg night Neuropathy: Continue gabapentin 300 mg twice daily Total time spent on discharge 32 minutes in counseling, documentation, chart review, and direct care with patient. Exam Data for Last 24 hours Vital signs and Labs for Last 24 Hours: Temp Pulse Resp BP Pulse Ox O2 Del Method 98.2 F 60 18 123/52 L 95 Room Air 02/02/24 08:00 02/02/24 08:00 02/02/24 08:00 02/02/24 08:00 02/02/24 08:00 02/02/24 09:00 Laboratory Results - last 24 hr 02/01/24 09:57: Total Counted 100, Neutrophils % (Manual) 87 H, Lymphocytes % (Manual) 7 L, Monocytes % (Manual) 6, Toxic Granulation 1+, Platelet Estimate Normal, RBC Morphology Normal, Sodium 135 L, Potassium 3.8, Chloride 103, Carbon Dioxide 27, Anion Gap 8.8, BUN 18 H, Creatinine 0.70, Estimated Creat Clear 37, Estimated GFR 80, Est GFR ( Amer) 96, Glucose 126 H, Calcium 9.9, Magnesium 1.6, Total Bilirubin 1.6 H, AST 43 H, ALT 45, Alkaline Phosphatase 66, Troponin I < 0.01, NT-Pro-B Natriuret Pep 988 H, Total Protein 6.7, Albumin 4.1, Globulin 2.6, Albumin/Globulin Ratio 1.6, Procalcitonin 0.304, Chlamy pneumoniae PCR Not detected, Adenovirus (PCR) Not detected, B. pertussis DNA (PCR) Not detected, Coronavirus OC43 (PCR) Not detected, Coronavirus HKU1 (PCR) Not detected, Coronavirus 229E (PCR) Not detected, SARS-CoV-2 (PCR) Not detected, Coronavirus NL63 (PCR) Not detected, Human Metapneumovir PCR Not detected, Influenza A (H1) PCR Not detected, Influ A (H1N1/09) PCR Not detected, Influenza A (H3) PCR Not detected, Influenza Type A (PCR) Not detected, Influenza A Untype (PCR) Not detected, Influenza Type B (PCR) Not detected, M. pneumoniae (PCR) Not detected, Parainfluenza 1 (PCR) Not detected, Parainfluenza 2 (PCR) Not detected, Parainfluenza 3 (PCR) Not detected, Parainfluenza 4 (PCR) Not detected, RSV (PCR) Not detected, Entero/Rhino (PCR) Not detected 02/01/24 11:24: Urine Color Yellow, Urine Appearance Sl cloudy, Urine pH 8.0, Ur Specific [place] 1.020, Urine Protein 2+ A, Urine Glucose (UA) Negative, Urine Ketones Negative, Urine Blood Negative, Urine Nitrate Negative, Urine Bilirubin 1+ A, Urine Urobilinogen 1.0, Ur Leukocyte Esterase Trace, Urine RBC None, Urine WBC 3-5, Ur Squamous Epith Cells 3-5, Urine Bacteria 1+ 02/01/24 13:45: Troponin I < 0.01 02/01/24 14:22: Lactate 1.1 02/01/24 16:20: Troponin I < 0.01 02/02/24 06:07: WBC 23.4 H*, RBC 4.26, Hgb 13.2 D, Hct 39.9, MCV 93.6, MCH 31.1, MCHC 33.2, RDW 12.7, Plt Count 176, MPV 8.5, Neut % (Auto) 85.9 H, Lymph % (Auto) 8.4 L, [place] % (Auto) 5.5, Eos % (Auto) 0.1, Baso % (Auto) 0.2, Neut # (Auto) 20.1 H, Lymph # (Auto) 2.0, [place] # (Auto) 1.3 H, Eos # (Auto) 0.0, Baso # (Auto) 0.0, Total Counted 100, Neutrophils % (Manual) 85 H, Lymphocytes % (Manual) 8 L, Monocytes % (Manual) 7, Platelet Estimate Normal, RBC Morphology Normal, Sodium 136, Potassium 3.3 L, Chloride 107, Carbon Dioxide 27, Anion Gap 5.3, BUN 16, Creatinine 0.60, Estimated Creat Clear 37, Estimated GFR 95, Est GFR ( Amer) 115, Glucose 93 D, Calcium 9.3, Magnesium 2.0 D, Total Bilirubin 1.9 H, AST 29 D, ALT 31 D, Alkaline Phosphatase 57, Total Protein 5.9 L, Albumin 3.3 L D, Globulin 2.6, Albumin/Globulin Ratio 1.3 I & O for Last 24 hours: Intake & Output 01/30/24 01/31/24 02/01/24 02/02/24 23:59 23:59 23:59 23:59 Intake Total 500 / 840 340 / 340 Output Total 0 / 0 Balance 500 / 840 340 / 340 Weight 54.176 kg 55.338 kg Constitutional Constitutional: no acute distress, thin and cooperative *Routine HEENT Exam Head: Present normocephalic Eye: Present EOMI and PERRL ENT: Present mucous membranes moist *Routine Neck Exam Neck: Present supple; Absent lymphadenopathy *Routine Respiratory Exam Respiratory: Present wheezes and crackles (Faint right sided middle lobe best heard in posterior lung field); Absent prolonged expiratory phase or rhonchi *Routine Cardiovascular Exam Cardiovascular: Present RRR *Routine Abdominal Exam Abdominal: Present soft and normoactive bowel sounds; Absent tenderness *Routine Rectal Exam Patient deferred: visual exam *Routine Exam Patient deferred: external exam *Routine Extremities Exam Extremities: Absent cyanosis, clubbing or edema *Routine Skin Exam Skin: Present warm; Absent rash *Routine Neurological Exam Neurological: Present alert, oriented X3 and moving all extremities; Absent al tered mental status Comments: ambulating independently around the room on morning exam Results Data Completed and Pending Labs on day of discharge: Labs from last 24 hours 02/02/24 02/01/24 02/01/24 06:07 16:20 14:22 WBC 23.4 H* RBC 4.26 Hgb 13.2 D Hct 39.9 MCV 93.6 MCH 31.1 MCHC 33.2 RDW 12.7 Plt Count 176 MPV 8.5 Neut % (Auto) 85.9 H Lymph % (Auto) 8.4 L [place] % (Auto) 5.5 Eos % (Auto) 0.1 Baso % (Auto) 0.2 Neut # (Auto) 20.1 H Lymph # (Auto) 2.0 [place] # (Auto) 1.3 H Eos # (Auto) 0.0 Baso # (Auto) 0.0 Total Counted 100 Neutrophils % (Manual) 85 H Lymphocytes % (Manual) 8 L Monocytes % (Manual) 7 Toxic Granulation Platelet Estimate Normal RBC Morphology Normal Sodium 136 Potassium 3.3 L Chloride 107 Carbon Dioxide 27 Anion Gap 5.3 BUN 16 Creatinine 0.60 Estimated Creat Clear 37 Estimated GFR 95 Est GFR ( Amer) 115 Glucose 93 D Lactate 1.1 Calcium 9.3 Magnesium 2.0 D Total Bilirubin 1.9 H AST 29 D ALT 31 D Alkaline Phosphatase 57 Troponin I < 0.01 NT-Pro-B Natriuret Pep Total Protein 5.9 L Albumin 3.3 L D Globulin 2.6 Albumin/Globulin Ratio 1.3 Procalcitonin Urine Color Urine Appearance Urine pH Ur Specific [place] Urine Protein Urine Glucose (UA) Urine Ketones Urine Blood Urine Nitrate Urine Bilirubin Urine Urobilinogen Ur Leukocyte Esterase Urine RBC Urine WBC Ur Squamous Epith Cells Urine Bacteria Chlamy pneumoniae PCR Adenovirus (PCR) B. pertussis DNA (PCR) Coronavirus OC43 (PCR) Coronavirus HKU1 (PCR) Coronavirus 229E (PCR) SARS-CoV-2 (PCR) Coronavirus NL63 (PCR) Human Metapneumovir PCR Influenza A (H1) PCR Influ A (H1N1/09) PCR Influenza A (H3) PCR Influenza Type A (PCR) Influenza A Untype (PCR) Influenza Type B (PCR) M. pneumoniae (PCR) Parainfluenza 1 (PCR) Parainfluenza 2 (PCR) Parainfluenza 3 (PCR) Parainfluenza 4 (PCR) RSV (PCR) Entero/Rhino (PCR) 02/01/24 02/01/24 02/01/24 13:45 11:24 09:57 WBC RBC Hgb Hct MCV MCH MCHC RDW Plt Count MPV Neut % (Auto) Lymph % (Auto) [place] % (Auto) Eos % (Auto) Baso % (Auto) Neut # (Auto) Lymph # (Auto) [place] # (Auto) Eos # (Auto) Baso # (Auto) Total Counted 100 Neutrophils % (Manual) 87 H Lymphocytes % (Manual) 7 L Monocytes % (Manual) 6 Toxic Granulation 1+ Platelet Estimate Normal RBC Morphology Normal Sodium 135 L Potassium 3.8 Chloride 103 Carbon Dioxide 27 Anion Gap 8.8 BUN 18 H Creatinine 0.70 Estimated Creat Clear 37 Estimated GFR 80 Est GFR ( Amer) 96 Glucose 126 H Lactate Calcium 9.9 Magnesium 1.6 Total Bilirubin 1.6 H AST 43 H ALT 45 Alkaline Phosphatase 66 Troponin I < 0.01 < 0.01 NT-Pro-B Natriuret Pep 988 H Total Protein 6.7 Albumin 4.1 Globulin 2.6 Albumin/Globulin Ratio 1.6 Procalcitonin 0.304 Urine Color Yellow Urine Appearance Sl cloudy Urine pH 8.0 Ur Specific [place] 1.020 Urine Protein 2+ A Urine Glucose (UA) Negative Urine Ketones Negative Urine Blood Negative Urine Nitrate Negative Urine Bilirubin 1+ A Urine Urobilinogen 1.0 Ur Leukocyte Esterase Trace Urine RBC None Urine WBC 3-5 Ur Squamous Epith Cells 3-5 Urine Bacteria 1+ Chlamy pneumoniae PCR Not detected Adenovirus (PCR) Not detected B. pertussis DNA (PCR) Not detected Coronavirus OC43 (PCR) Not detected Coronavirus HKU1 (PCR) Not detected Coronavirus 229E (PCR) Not detected SARS-CoV-2 (PCR) Not detected Coronavirus NL63 (PCR) Not detected Human Metapneumovir PCR Not detected Influenza A (H1) PCR Not detected Influ A (H1N1/09) PCR Not detected Influenza A (H3) PCR Not detected Influenza Type A (PCR) Not detected Influenza A Untype (PCR) Not detected Influenza Type B (PCR) Not detected M. pneumoniae (PCR) Not detected Parainfluenza 1 (PCR) Not detected Parainfluenza 2 (PCR) Not detected Parainfluenza 3 (PCR) Not detected Parainfluenza 4 (PCR) Not detected RSV (PCR) Not detected Entero/Rhino (PCR) Not detected DS: Diagnosis Discharge Diagnosis (1) Pneumonia: Status: Acute Code(s): J18.9 - Pneumonia, unspecified organism Qualifiers: Laterality: bilateral Lung location: unspecified part of lung Pneumonia type: due to unspecified organism Qualified Code(s): J18.9 - Pneumonia, unspecified organism (2) Ileus: Status: Acute Code(s): K56.7 - Ileus, unspecified (3) CAD (coronary artery disease): Status: Chronic Code(s): I25.10 - Atherosclerotic heart disease of [place] coronary artery without angina pectoris Qualifiers: Associated angina: without angina Coronary Disease-Associated Artery/Lesion type: [place] artery [place] vs. transplanted heart: [place] heart Qualified Code(s): I25.10 - Atherosclerotic heart disease of [place] coronary artery without angina pectoris (4) HHD (hypertensive heart disease): Status: Chronic Code(s): I11.9 - Hypertensive heart disease without heart failure Qualifiers: Heart failure presence: without heart failure Qualified Code(s): I11.9 - Hypertensive heart disease without heart failure (5) HLD (hyperlipidemia): Status: Chronic Code(s): E78.5 - Hyperlipidemia, unspecified Qualifiers: Hyperlipidemia type: mixed hyperlipidemia Qualified Code(s): E78.2 - Mixed hyperlipidemia (6) H/O four vessel coronary artery bypass graft: Status: Chronic Code(s): Z95.1 - Presence of aortocoronary bypass graft Meds Home Medications and Allergies Home Medications ?Medication ?Instructions ?Recorded ?Confirmed ?Type gabapentin 300 mg capsule 300 mg PO BID 12/01/23 02/03/24 History potassium chloride 10 mEq 10 meq PO BID 12/01/23 02/03/24 History capsule,extended release rosuvastatin 20 mg tablet 20 mg PO DAILY 12/01/23 02/03/24 History alprazolam 0.5 mg tablet 0.5 mg PO HS #90 tabs 12/31/23 02/03/24 Rx aspirin 81 mg tablet 81 mg PO DAILY 02/01/24 02/03/24 History lisinopril 10 1 tab PO DAILY 02/01/24 02/03/24 History mg-hydrochlorothiazide 12.5 mg tablet metoprolol succinate 100 mg 100 mg PO DAILY 02/01/24 02/03/24 History tablet,extended release 24 hr levofloxacin 750 mg tablet 750 mg PO DAILY 5 days #5 tabs 02/02/24 02/03/24 Rx clopidogrel 75 mg tablet 75 mg PO DAILY #90 tabs 02/03/24 02/03/24 Rx New Prescriptions to Start Prescriptions: levofloxacin Matias Roper Allergies Allergy/AdvReac Type Severity Reaction Status Date / Time No Known Allergies Allergy Verified 02/03/24 11:36 Discharge Plan Disposition Patient Disposition: Home, Self-Care Condition: Fair Follow up Plan Follow up with: Leon Marx MD [Primary Care Provider] - Enter time for follow up (please call for appointment) Prescriptions/Medication Reconciliation: New levofloxacin 750 mg tablet 750 mg PO DAILY 5 Days Qty: 5 0RF Continued alprazolam 0.5 mg tablet 0.5 mg PO HS Qty: 90 0RF potassium chloride 10 mEq capsule, extended release 10 meq PO BID Patient Comments: TAKE 1 CAPSULE BY MOUTH TWICE DAILY gabapentin 300 mg capsule 300 mg PO BID Patient Comments: TAKE 1 CAPSULE BY MOUTH TWICE DAILY FOR PAIN rosuvastatin 20 mg tablet 20 mg PO DAILY Patient Comments: TAKE 1 TABLET BY MOUTH ONCE DAILY FOR CHOLESTEROL metoprolol succinate 100 mg Tablet Extended Release 24 Hr 100 mg PO DAILY aspirin 81 mg Tablet 81 mg PO DAILY lisinopril-hydrochlorothiazide 10-12.5 mg tablet 1 tab PO DAILY No Action clopidogrel 75 mg tablet 75 mg PO DAILY Qty: 90 3RF Problem Reconciliation Problems Reviewed?: Yes Patient Discharge Instructions ACTIVITY: Continue current activity DIET: continue same diet Patient Instructions: Pneumonia--Adult Print Language: [place] Providers Primary Care Provider: Leon Marx Admit Provider: Matias oRper Attending Provider: Matias Roper
--- NOTE | 2024-02-04 11:30 | SW/DCPLANNER ---
Phoned patient 2x and each time no answer. Left a message and call back number each time. Matty Chavez
== END 2024-02-02 11:08 | disposition home or self-care (01) ==
LOC: UTC 09:13 → ER 09:54 → 2ND 12:41
PROVIDERS: Admitting Provider Internal Medicine Adolescent Medicine; Emergency Provider Student in an Organized Health Care Education/Training Program; PCP Internal Medicine; Visit Provider Internal Medicine Adolescent Medicine
DX: J18.9 Pneumonia, unspecified organism (principal); K56.7 Ileus, unspecified; I25.10 Atherosclerotic heart disease of native coronary artery without angina pectoris; I11.9 Hypertensive heart disease without heart failure; E78.2 Mixed hyperlipidemia; Z95.1 Presence of aortocoronary bypass graft; Z87.891 Personal history of nicotine dependence; Z95.5 Presence of coronary angioplasty implant and graft
CPT/HCPCS: 36415; 71046; 71275; 74177; 80053; 81001; 82803; 83605; 83735; 83880; 84145; 84484; 85007; 85025; 85027; 87040; 87633; 87636; 93005; 94640; 99285; G0378; J1650; J2543; J3370; J7050; J7620; Q9967

== ENCOUNTER 2024-02-04 16:35 | Outpatient (CLI) | payer MEDICARE, OTHER, SELFPAY ==
[2024-02-04 12:47] LABS: Adenovirus F 40/41, stool Not Detected (NotDetected); Astrovirus Not Detected (NotDetected); Campylobacter Not Detected (NotDetected); Clostridium Difficile A/B, PCR Not Detected (NotDetected); Cryptosporidium Not Detected (NotDetected); Cyclospora Cayetanesis Not Detected (NotDetected); Entamoeba histolytica Not Detected (NotDetected); Enteroaggregative E coli Not Detected (NotDetected); Enteropathogenic E coli Not Detected (NotDetected); Enterotoxigenic E coli Not Detected (NotDetected); Giardia lamblia Not Detected (NotDetected); Norovirus Not Detected (NotDetected); Plesimonas Shigalloides, PCR Not Detected (NotDetected); Rotavirus A Not Detected (NotDetected); Salmonella, PCR Not Detected (NotDetected); Sapovirus Not Detected (NotDetected); Shiga-like toxin E coli Not Detected (NotDetected); Shigella Enterovasive E coli Not Detected (NotDetected); Vibrio Cholerae Not Detected (NotDetected); Vibrio, PCR Not Detected (NotDetected); Yersinia Entercolitica, PCR Not Detected (NotDetected)
== END 2024-02-04 23:59 | disposition home or self-care (01) ==
LOC: LAB.DROPOF 16:36
PROVIDERS: PCP Internal Medicine; Visit Provider Internal Medicine
DX: A09 Infectious gastroenteritis and colitis, unspecified (principal)
CPT/HCPCS: 87506

== ENCOUNTER 2024-02-10 15:10 | Outpatient (CLI) | payer MEDICARE, OTHER, SELFPAY ==
[2024-02-10 13:08] LABS: Basophils # 0.1 K/mm3 (0-0.2); Basophils % 0.7 % (0.1-2.0); Eosinophils # 0.1 K/mm3 (0.0-0.4); Eosinophils % 1.4 % (0.1-12.0); Hematocrit 44.2 % (37.0-47.0); Hemoglobin 14.3 g/dL (12.2-16.2); Lymphocytes # 2.5 K/mm3 (0.7-4.5); Lymphocytes % 28.9 % (10-50); Mean Corpuscular HGB Conc 32.4 g/dL (31.8-35.4); Mean Corpuscular Hemoglobin 31.3 pg (27.0-31.2); Mean Corpuscular Volume 96.5 fl (81-99); Mean Platelet Volume 8.3 fl (7.4-10.4); Monocytes # 0.6 K/mm3 (0.1-1.0); Monocytes % 6.8 % (1.7-9.3); Neutrophils # 5.4 K/mm3 (1.8-7.8); Neutrophils % 62.3 % (37.0-80.0); Platelet Count 270 K/mm3 (142-424); Red Blood Count 4.58 M/mm3 (4.20-5.40); Red Cell Distribution Width 12.6 % (11.5-17.5); White Blood Count 8.6 K/mm3 (4.8-10.8)
== END 2024-02-10 23:59 | disposition home or self-care (01) ==
LOC: LAB.DROPOF 15:10
PROVIDERS: PCP Internal Medicine; Visit Provider Internal Medicine
DX: D72.829 Elevated white blood cell count, unspecified (principal)
CPT/HCPCS: 85025

== ENCOUNTER 2024-03-17 10:47 | Emergency (ER) | payer MEDICARE, OTHER, SELFPAY ==
[2024-03-17 10:55] VITALS: BP 147/77; PULSE 82; RESP 17; TEMP 36.8; O2SAT 97; BMI 21.6
--- NOTE | 2024-03-17 10:57 | XR_ITS ---
FINAL REPORT CLINICAL HISTORY: hurt it 2mths ago pain got worse COMPARISON: None FINDINGS: 3 views of the left shoulder show no evidence of acute displaced fracture or dislocation of the visualized bony architecture. There is a small lucent lesion with smooth sclerotic margin of the humeral head compatible with nonspecific benign bone lesion. Mild AC joint arthropathy is noted. IMPRESSION: No acute process. Reviewed, Interpreted and Dictated by Karma Brooke MD Transcribed by Delaney Munoz Authenticated and [facility]
--- NOTE | 2024-03-17 11:01 | XR_ITS ---
FINAL REPORT CLINICAL HISTORY: hurt it catching someone that was falling COMPARISON: None FINDINGS: Two views of the left humerus show no evidence of an acute, displaced fracture or dislocation of the visualized bony architecture. Osteopenia is noted. IMPRESSION: No acute process. Reviewed, Interpreted and Dictated by Karma Brooke MD Transcribed by Delaney Munoz Authenticated and [facility]
--- NOTE | 2024-03-17 11:02 | ED_ITS ---
Discharge Plan Disposition Patient Disposition: Home, Self-Care Condition: Good Prescriptions Prescriptions: No Action alprazolam 0.5 mg tablet 0.5 mg PO HS Qty: 90 0RF clopidogrel 75 mg tablet 75 mg PO DAILY Qty: 90 3RF potassium chloride 10 mEq capsule, extended release 10 meq PO BID Patient Comments: TAKE 1 CAPSULE BY MOUTH TWICE DAILY gabapentin 300 mg capsule 300 mg PO BID Patient Comments: TAKE 1 CAPSULE BY MOUTH TWICE DAILY FOR PAIN rosuvastatin 20 mg tablet 20 mg PO DAILY Patient Comments: TAKE 1 TABLET BY MOUTH ONCE DAILY FOR CHOLESTEROL metoprolol succinate 100 mg Tablet Extended Release 24 Hr 100 mg PO DAILY aspirin 81 mg Tablet 81 mg PO DAILY lisinopril-hydrochlorothiazide 10-12.5 mg tablet 1 tab PO DAILY levofloxacin 750 mg tablet 750 mg PO DAILY 5 Days Qty: 5 0RF Referrals Follow up/Referrals: Leon Marx MD [Primary Care Provider] - See instructions Activity Restrictions/Add. Instructions Additional Instructions/Restrictions: Over the counter Motrin and/or Tylenol which ever you can take for pain Over the Biofreeze applied to the area may help with pain and discomfort Follow up with your Family Doctor for further evaluation and testing Return if needed Straight to ER if any life threatening symptoms Clinical Impressions Clinical Impression: Left shoulder strain Qualifiers: Encounter type: initial encounter Qualified Code(s): S46.912A - Strain of unspecified muscle, fascia and tendon at shoulder and upper arm level, left arm, initial encounter Instructions Patient Instructions: DI for Muscle Strain, Acetaminophen Print Language Print Language: Bengali Discharge ED Provider: Tiny De La O [facility] General Stated complaint: LT arm pain, no accident Mode of Arrival: Ambulatory Source of Information: Patient Limitations: No Limitations Time Seen by Provider: 03/17/24 11:02 Description of Symptoms (Recalled from Triage Doc. by RN): PATIENT C/O LEFT SHOULDER AND UPPER ARM PAIN WITH MOVEMENT. SHE STATES IT STARTED HURTING APPROX 4 WEEKS AGO AFTER SHE CAUGHT SOMEONE FROM FALLING, BUT STATES IT IS HURTING WORSE TODAY HEENT Symptoms (Recalled from RN notes): No Resp Symptoms (Recalled from RN notes): No Skin Symptoms (Recalled from RN notes): No MS Symptoms (Recalled from RN notes): Yes Functional Status (Recalled from RN notes): WNL History of Present Illness Provider Complaint: Patient states that about a month ago she caught a person from falling and hurt her left shoulder/upper arm States not sure if she may have pulled something or tore something in her shoulder States since then the pain in her shoulder has been bothering her and worse with movement 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 States she has been taking Tylenol for it but not helped much and today when it was still bothering her she came in wanting to get an xray Denies chest pain, denies radiation of pain, denies jaw pain or neck pain Related Data Home Medications ?Medication ?Instructions ?Recorded ?Confirmed gabapentin 300 mg capsule 300 mg PO BID 12/01/23 02/10/24 potassium chloride 10 mEq 10 meq PO BID 12/01/23 02/10/24 capsule,extended release rosuvastatin 20 mg tablet 20 mg PO DAILY 12/01/23 02/10/24 aspirin 81 mg tablet 81 mg PO DAILY 02/01/24 02/10/24 lisinopril 10 1 tab PO DAILY 02/01/24 02/10/24 mg-hydrochlorothiazide 12.5 mg tablet metoprolol succinate 100 mg 100 mg PO DAILY 02/01/24 02/10/24 tablet,extended release 24 hr Previous Rx's ?Medication ?Instructions ?Recorded alprazolam 0.5 mg tablet 0.5 mg PO HS #90 tabs 12/31/23 levofloxacin 750 mg tablet 750 mg PO DAILY 5 days #5 tabs 02/02/24 clopidogrel 75 mg tablet 75 mg PO DAILY #90 tabs 02/03/24 Allergies Allergy/AdvReac Type Severity Reaction Status Date / Time No Known Allergies Allergy Verified 02/10/24 12:12 Worker's Comp Is this a Worker's Comp case?: No PFSH [facility] Disclaimer: The information contained in this section may have been updated after the patient was seen, as this information can be updated by other users. 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 Closed left radial fracture Skin cancer Carotid bruit Carotid artery stenosis HLD (hyperlipidemia) HHD (hypertensive heart disease) CAD (coronary artery disease) Surgical History Status post coronary artery stent placement Stented coronary artery H/O cardiac catheterization H/O four vessel coronary artery bypass graft Social History Smoking Status: Former smoker second hand exposure: No alcohol intake: never substance use type: denies use current occupational status: retired Travel in the last 8 weeks: None household members: spouse housing: house current occupational exposures/hazards: No caffeine: Yes Have you lived/traveled outside US in past 30 days?: No Contact w/someone who lives/traveled outside US past 30 days?: No Exposure to someone with infectious disease in past 14 days?: No Do you have a fever (greater than 100.4 F or 38 C)?: No Have you tested positive for COVID-19: No Exposed to someone with COVID-19 in past 14 days?: No Do you have a sore throat?: No Do you have a cough?: No Do you have any weakness?: No Do you have any diarrhea?: No Are you experiencing any unusual bleeding?: No Do you have any muscle aches/pain?: No Do you have any abdominal pain?: No Are you experiencing loss of taste or smell?: No ROS Obtained: Yes All systems reviewed & no additional complaints except as documented and Yes Systems reviewed as appropriate & no additional complaints except as documented Constitutional Constitutional: Reports system reviewed and no additional complaints, except as documented and Reports as per HPI ENT Ears, Nose, Mouth, and Throat: Reports system reviewed and no additional complaints, except as documented and Reports as per HPI Cardiovascular Cardiovascular: Reports system reviewed and no additional complaints, except as documented, Reports as per HPI, Denies chest pain, Denies chest pain at rest, Denies chest pain with activity, Denies dyspnea, Denies edema, Denies lightheadedness, Denies palpitations, Denies pedal edema and Denies radiating jaw, neck or arm pain Respiratory Respiratory: Reports system reviewed and no additional complaints, except as documented, Reports as per HPI and Denies dyspnea Gastrointestinal Gastrointestingal: Reports system reviewed and no additional complaints, except as documented and as per HPI Musculoskeletal Musculoskeletal: Reports system reviewed and no additional complaints, except as documented, Reports as per HPI and Reports other (pain in left shoulder/upper arm area pain worse with movement after hurting) Comments: Reports hurt arm 4 weeks ago catching someone that was falling and felt something pull no improvement in pain worse with movement denies radiation of pain into neck or jaw area Endocrine Endocrine: Denies palpitations Physical Exam General General appearance: alert and in no apparent distress ENT ENT exam: Present mucous membranes moist Respiratory Respiratory exam: Present normal lung sounds bilaterally; Absent respiratory distress or wheezes Cardiovascular Cardiovascular exam: Present regular rate, normal rhythm and normal heart sounds Abdominal Exam Abdominal exam: Present soft and normal bowel sounds; Absent distention or tenderness Expanded Upper Extremity Exam Left: Shoulder exam: Present tenderness; Absent swelling, abrasion, laceration or ecchymosis Arm exam: Present tenderness; Absent swelling, abrasion, laceration, ecchymosis or erythema Elbow exam: Present normal inspection Forearm/Wrist exam: Present normal inspection Hand exam: Present normal inspection Neuromotor exam: Normal wrist extension Vascular exam: Normal capillary refill Neurological Exam Neurological exam: Present alert, oriented X3 and normal gait Medical Decision Making Medical Records Screening: Per USPSTF and CDC recommendations, given the prevalence of disease in our region, it is our hospital?s policy to screen for HIV and viral Hepatitis for all patients aged 18 and over and those with ongoing risk factors. Jonathon Inquiry Pt receiving controlled substance: No Jonathon was queried for this patient: No Vital Signs: 03/17/24 10:55 Temperature 98.3 F Temperature Source Oral Pulse Rate [Left Brachial] 82 Respiratory Rate 17 Blood Pressure [Right Arm] 147/77 H Blood Pressure Mean [Right Arm] 100 Blood Pressure Source [Right Arm] Automatic Cuff Blood Pressure Position [Right Arm] Sitting 02 Sat by Pulse Oximetry 97 Oxygen Delivery Method Room Air Orders (Tests/Meds): ORDERS Category Date Time Status Humerus XR left [XR humerus LT] Stat Exams 03/17/24 11:01 Ordered Shoulder XR left minimum 2 views [XR shoulder LT min 2V Exams 03/17/24 10:57 Ordered ] Stat Radiology Data #1: Image(s): Humerus Image Reviewed: Yes I have reviewed radiologist's interpretation IMPRESSION: No acute process. #2: Image(s): Shoulder Image Reviewed: Yes I have reviewed radiologist's interpretation IMPRESSION: No acute process. Medical Decision Narrative: Patient states that she hurt her left shoulder and upper arm when someone she was with slipped and was falling and she reached out and caught her felt something pull in her left shoulder area but thought it would get better but hasnt still having pain in left shoulder/upper arm area that is worse with movement denies CP denies radiation of pain into jaw or neck area Discussed EKG and transfer to the ED to R/o cardiac and she declined states just wants xray of shoulder and will follow up with PCP that it just hurts when she moves it and no pain if she is holding it still
[2024-03-17 12:03] VITALS: BP 147/77; PULSE 82; RESP 17; TEMP 36.8; O2SAT 97
== END 2024-03-17 12:07 | disposition home or self-care (01) ==
PROVIDERS: Emergency Provider Nurse Practitioner; PCP Internal Medicine
DX: S46.912A Strain of unspecified muscle, fascia and tendon at shoulder and upper arm level, left arm, initial encounter (principal)
CPT/HCPCS: 73030; 73060; 99213; G0381

== ENCOUNTER 2024-10-29 10:28 | Emergency (ER) | payer MEDICARE, OTHER, SELFPAY ==
[2024-10-29 10:37] VITALS: BP 148/74; PULSE 85; RESP 16; TEMP 36.6; O2SAT 97; BMI 20.5
--- NOTE | 2024-10-29 10:48 | XR_ITS ---
FINAL REPORT CLINICAL HISTORY: Right thumb injury FINDINGS: AP, lateral and oblique views of the right hand were obtained. There is no prior exam for comparison. There is no acute fracture or dislocation. Mild multijoint degenerative disease. The soft tissues are normal. IMPRESSION: No acute osseous abnormality of the right hand. Reviewed, Interpreted and Dictated by Valerie Fair MD Transcribed by eDlaney Munoz Authenticated and [facility]
--- OUTSIDE RECORDS SUMMARY | 2024-10-29 11:00 | XMS_ITS | Clinical Summary ---
Author Organization [facility] Address [address] [place] [address] Care Team Providers Care Design Cell Engineer Name Role Phone Leon Marx MD Primary Care Provider [phone] Allergies No known active allergies Medications ALPRAZolam (Xanax) 0.5 MG tablet TAKE 1 TABLET BY MOUTH EVERY DAY AT BEDTIME FOR ANXIETY 4 Active gabapentin (Neurontin) 300 MG capsule Take 1 capsule (300 mg) by mouth 2 (two) times a day. 4 Active lisinopril-hydr oCHLOROthiazide 10-12.5 MG tablet Take 1 tablet by mouth 1 (one) time each day. 4 Active potassium chloride ER (Micro-K) 10 MEQ ER capsule Take 1 capsule (10 mEq) by mouth 2 (two) times a day. Active rosuvastatin (Crestor) 20 MG tablet TAKE 1 TABLET BY MOUTH ONCE DAILY FOR CHOLESTEROL 4 Active clopidogrel (Plavix) 75 MG tablet Take 1 tablet (75 mg) by mouth 1 (one) time each day. Active omeprazole (PriLOSEC) [address] capsule Take 1 capsule (20 mg) by mouth 1 (one) time each day. Do not crush or chew. Active metoprolol succinate XL (Toprol-XL) 100 MG 24 hr tablet Take 1 tablet (100 mg) by mouth 1 (one) time each day. Do not crush or chew. Active amLODIPine (Norvasc) 10 MG tablet Take by mouth 1 (one) time each day. Active ASPIRIN 81 PO Take by mouth. A ctive Active Problems No known active problems Immunizations Immunization Administration Dates Next Due Pneumococcal, Unspecified 12/01/2009 Social History Tobacco Use Types Packs/Day Years Used Date Smoking Tobacco: Former Passive Smoke Exposure: Past Smokeless Tobacco: Never Tobacco Cessation:Counseling Given: Not Answered Comments Unknown Sex and Gender Information Value Date Recorded Sex Assigned at Not on file Legal Sex Female 7:40 PM EDT Gender Identity Not on file Sexual Orientation Not on file Plan of Treatment Health Maintenance Due Date Last Done Comments [facility]-Bone Density Scan 1940 [facility]-Depression Screening 1940 [facility]-Medicare Annual Wellness (AWV) 1940 [facility]-Infant/Child/Adol SDOH Screenings 1940 [facility]- SDOH Screenings 11/06/1957 [facility]-Adult SDOH Screenings 11/06/1957 [facility]-Zoster Vaccines (1 of 2) 11/06/1989 [facility]-DTaP,Tdap,and Td Vaccines (1 - Tdap) 05/11/1996 05/10/1996 [facility]-Pneumococcal Vaccine: 50+ Years (2 of 2 - PCV) 11/19/2018 11/19/2017, 12/01/2009 [id number] Vaccine ( season) 2023 09/15/2021, 12/27/2020, 05/27/2020, Additional history exists [facility]-Influenza Vaccine (#1) 11/02/202411/06, 11/22/2021, 11/28/2020, Additional history exists [facility]-RSV Vaccine: 60+ Years or Completed 11/06/2022 HPV Vaccines Aged Out No longer eligi ble based on patient's age to complete this topic [facility]-HIB Vaccines Aged Out No longer e ligible based on patient's age to complete this topic [facility]-Hepatitis A Vaccines Aged Out No longer eligible based on patient's age to complete this topic [facility]-IPV Vaccines Aged Out No longer e ligible based on patient's age to complete this topic [facility]-Rotavirus Vaccines Aged Out No lo nger eligible based on patient's age to complete this topic Insurance DAVID [id number] MEDICARE [employer] Care Teams Design Cell Engineer Relationship Specialty Start Date End Date Leon Marx MD [address] [facility] [address] [place] [address] PCP - General 07/15/20
--- NOTE | 2024-10-29 11:23 | ED_ITS ---
Discharge Plan Disposition Patient Disposition: Home, Self-Care Condition: Good Prescriptions Prescriptions: No Action mupirocin 2 % ointment 1 applic topical TID Qty: 22 0RF Rx Instructions: apply to skin around left index fingernail as directed cephalexin 500 mg capsule 1,000 mg PO BID Qty: 20 0RF clopidogrel 75 mg tablet 75 mg PO DAILY Qty: 90 3RF lisinopril-hydrochlorothiazide 10-12.5 mg tablet See Rx Instructions .ROUTE .COMPLEX Qty: 90 1RF Dose Instruction: Take 1 tablet by mouth once daily Rx Instructions: Take 1 tablet by mouth once daily gabapentin 300 mg capsule 300 mg PO BID Qty: 180 0RF alprazolam 0.5 mg tablet 0.5 mg PO HS Qty: 30 2RF potassium chloride 10 mEq capsule, extended release See Rx Instructions .ROUTE .COMPLEX Qty: 180 1RF Dose Instruction: Take 1 capsule by mouth twice daily Rx Instructions: Take 1 capsule by mouth twice daily rosuvastatin 20 mg tablet 20 mg PO DAILY Patient Comments: TAKE 1 TABLET BY MOUTH ONCE DAILY FOR CHOLESTEROL metoprolol succinate 100 mg Tablet Extended Release 24 Hr 100 mg PO DAILY aspirin 81 mg Tablet 81 mg PO DAILY levofloxacin 750 mg tablet 750 mg PO DAILY 5 Days Qty: 5 0RF Referrals Follow up/Referrals: Leon Marx MD [Primary Care Provider, Medical] - See instructions Desmond Kemp DO [Staff Physician, Orthopedics] - See instructions Activity Restrictions/Add. Instructions Additional Instructions/Restrictions: If you continue to have pain after 1 week please call the orthopedic office and request an appointment in clinic with Dr. Kemp's staff. If you have any new or worsening symptoms please return. You can take Tylenol and Motrin at home for pain. Clinical Impressions Clinical Impression: Injury of right thumb Qualifiers: Encounter type: initial encounter Qualified Code(s): S69.91XA - Unspecified injury of right wrist, hand and finger(s), initial encounter Print Language Print Language: Luxembourgish Discharge ED Provider: Eduardo Perez Adult [facility] General Chief complaint: Extremity Injury, Upper Stated complaint: pain right thumb Time Seen by Provider: 10/29/24 10:40 Mode of Arrival: Ambulatory Source of Information: Patient Description of Symptoms (Recalled from ER Triage Doc. by RN): Patient complaining of pain in joint of right thumb- states that yesterday morning around 0800 her grabbed her hand and bent it backwards. (He has dementia). She is able to bend thumb. Patient states she took tylenol about an hour ago. History of Present Illness HPI narrative: This is an 83-year-old female patient, with past medical history of hypertension, hyperlipidemia, coronary artery disease, who is presenting to the emergency department today for evaluation of a right thumb injury. The patient states that her has dementia and he often needs physical assist. She states that she was physically assisting her and her thumb got caught in a pocket on his short and she suffered a twisting injury to the thumb. She has been having pain since that time. She localizes this pain near the MCP joint. She has had no numbness or tingling. No motor deficits. Related Data Home Medications ?Medication ?Instructions ?Recorded ?Confirmed rosuvastatin 20 mg tablet 20 mg PO DAILY 12/01/2307/26 aspirin 81 mg tablet 81 mg PO DAILY 02/01/2407/26 metoprolol succinate 100 mg 100 mg PO DAILY 02/01/24 0 08/06/24 tablet,extended release 24 hr Previous Rx's ?Medication ?Instructions ?Recorded levofloxacin 750 mg tablet 750 mg PO DAILY 5 days #5 t abs 02/02/24 clopidogrel 75 mg tablet 75 mg PO DAILY #90 tabs 04/27 lisinopril 10 See Rx Instructions .Route 0 06/19/24 mg-hydrochlorothiazide 12.5 mg .COMPLEX #90 tabs tablet mupirocin 2 % topical ointment 1 applic topical TID #2 2 grams 07/24/24 cephalexin 500 mg capsule 1,000 mg (2 x 500 mg) PO BID #20 08/06/24 caps gabapentin 300 mg capsule 300 mg PO BID #180 caps 08/02 03/28 alprazolam 0.5 mg tablet 0.5 mg PO HS #30 tabs potassium chloride 10 mEq See Rx Instructions .Route 0 10/21/24 capsule,extended release .COMPLEX #180 caps Allergies Allergy/AdvReac Type Severity Reaction Status Date / Time No Known Allergies Allergy Verified 10/29/24 10:42 [facility] Disclaimer: The information contained in this section may have been updated after the patient was seen, as this information can be updated by other users. Medical History Paronychia Encounter for immunization Primary squamous cell carcinoma of skin of left lower extremity Well differentiated, surgical margins clear. Closed left radial fracture Skin cancer Carotid bruit Carotid artery stenosis HLD (hyperlipidemia) HHD (hypertensive heart disease) CAD (coronary artery disease) Surgical History Status post coronary artery stent placement Stented coronary artery H/O cardiac catheterization H/O four vessel coronary artery bypass graft Social History Smoking Status: Never smoker second hand exposure: No alcohol intake: never substance use type: denies use current occupational status: retired Travel in the last 8 weeks?: None household members: spouse housing: house current occupational exposures/hazards: No caffeine: Yes Have you lived/traveled outside US in past 30 days?: No Contact w/someone who lives/traveled outside US past 30 days?: No Exposure to someone with infectious disease in past 14 days?: No Do you have a fever (greater than 100.4 F or 38 C)?: No Have you tested positive for COVID-19?: No Exposed to someone with COVID-19 in past 14 days?: No Do you have a sore throat?: No Do you have a cough?: No Do you have any weakness?: No Do you have any diarrhea?: No Are you experiencing any unusual bleeding?: No Do you have any muscle aches/pain?: No Do you have any abdominal pain?: No Are you experiencing loss of taste or smell?: No Other Medical History Have you received the Flu Vaccine for this season: No Have you received the Pneumonia Vaccine: Yes ROS Obtained: Yes Systems reviewed as appropriate & no additional complaints except as documented Physical Exam General General appearance: other (See MDM) Respiratory Respiratory exam: Present other (See MDM) Cardiovascular Cardiovascular exam: Present other (See MDM) Neurological Exam Neurological exam: Present other (See MDM) Medical Decision Making Medical Records Medical records reviewed: Yes I reviewed the patient's medical records. Screening: Per USPSTF and CDC recommendations, given the prevalence of disease in our region, it is our hospital?s policy to screen for HIV and viral Hepatitis for all patients aged 18 and over and those with ongoing risk factors. Jonathon Inquiry Pt receiving controlled substance: No Jonathon was queried for this patient: No Vital Signs: 10/29/24 10:37 10/29/24 12:23 Temperature 97.8 F 97.8 F Temperature Source Oral Pulse Rate 78 Pulse Rate [Right Brachial] 85 Respiratory Rate 16 16 Blood Pressure 123/56 L Blood Pressure [Right Arm] 148/74 H Blood Pressure Mean [Right Arm] 98 Blood Pressure Source [Right Arm] Automatic Cuff Blood Pressure Position [Right Arm] Sitting 02 Sat by Pulse Oximetry 97 Oxygen Delivery Method Room Air Orders (Tests/Meds): ORDERS Category Date Time Status Hand XR right minimum 3 views [XR hand RT min 3V] Stat Exams 10/29/24 10:48 Completed Medical Decision Narrative: In summary, this is an 83-year-old female patient who is presenting to the emergency department today for evaluation of a right thumb injury after suffering a twisting injury. Comorbidities include CAD, hypertension, hyperlipidemia. On initial evaluation of the patient they were resting comfortably in no acute distress and nontoxic in appearance. They are hemodynamically stable, saturating well room air, and are neurologically intact. On physical examination of the patient she has full range of motion of the right thumb. There is no deformity present. She has tenderness near the MCP joint and proximal phalanx. She is sensory intact. She has good capillary refill in the thumb. Differential diagnosis includes metacarpal fracture, proximal phalanx fracture, distal phalanx fracture, among others. Initial workup consisted of an x-ray of the right hand. X-ray of the right hand was personally interpreted by me and demonstrates no acute fracture or dislocation. On repeat reassessment the patient remains resting comfortably in no acute distress. Given that she is having tenderness over the proximal aspect of the thumb near the MCP joint I have placed the patient in a thumb spica [employer] fabricated splint out of an abundance of precaution. I have instructed the patient to take NSAIDs and Tylenol at home for pain relief. I have instructed her that she should follow-up with orthopedic clinic if she is still having persistent pain at the 1 to 2-week benedicto. At this time all questions were answered and all parties were agreeable with the decision to discharge home Critical Care Critical Care Time Critical Care Time: No
[2024-10-29 12:23] VITALS: BP 123/56; PULSE 78; RESP 16; TEMP 36.6; O2SAT 98
== END 2024-10-29 12:54 | disposition home or self-care (01) ==
PROVIDERS: Emergency Provider Student in an Organized Health Care Education/Training Program; PCP Internal Medicine
DX: S69.91XA Unspecified injury of right wrist, hand and finger(s), initial encounter (principal)
CPT/HCPCS: 73130; 99282; 99283